=== PATIENT | male | born 1960 | race Caucasian/White ===

== ENCOUNTER 2019-12-06 05:22 | Observation (INO) ==
--- NOTE | 2019-11-16 14:57 | PAT Medication Instructions ---
Medication Instructions Date of Service November 16, 2019 Home Medications Medication Instructions Recorded Wheeled Walker #1 ea 11/01/19 ascorbic acid (vitamin C) [Vitamin C] 500 mg PO QAM cyanocobalamin (vitamin B-12) 500 mcg PO QAM naproxen sodium [Aleve] 440 mg PO QAM ASK your surgeon for instructions naproxen sodium [Aleve] 440 mg PO QAM DO NOT take the morning of surgery ascorbic acid (vitamin C) [Vitamin C] 500 mg PO QAM cyanocobalamin (vitamin B-12) 500 mcg PO QAM Other Notes If you have any questions please call us at [phone] or [phone] or [phone] or [phone]
--- NOTE | 2019-11-20 10:33 | Anesthesiology Consultation ---
Date of Service November 20, 2019 Assessment & Plan (1) Encounter for pre-operative examination: Per assessment on 11/19: Travel screen- Lives in [place]. Uses PPE. No known COVID-19 positive contacts or current COVID-19 related symptoms. Surgeon arranging preop COVID testing. Awaiting results. Chart Review Chart Review: Acceptable Risk for Surgery and Patient seen in Pre Admission Testing Teaching & Discussion Pre-Anesthesia Teaching/Discussion Notes: Instructed NPO after midnight before surgery,except medications with 15 cc of water. Medication instructions provided according to the PAT guidelines. History Surgery Operation Date: 12/06/19 11:20 Proposed Procedures p Total Hip Arthroplasty Uncemented - Terry Ramon MD Height/Weight Height: 5 ft 9 in Weight: 77.3 kg Allergies Allergy/AdvReac Type Severity Reaction Status Date / Time No Known Allergies Allergy Verified 11/15/19 14:02 Medications Home Medications Medication Instructions Recorded Confirmed Last Taken Wheeled Walker #1 ea 11/01/19 11/01/19 Unknown ascorbic acid (vitamin C) [Vitamin 500 mg PO QAM 11/15/19 11/15/19 Unknown C] cyanocobalamin (vitamin B-12) 500 mcg PO QAM 11/15/19 11/15/19 Unknown naproxen sodium [Aleve] 440 mg PO QAM 11/15/19 11/15/19 Unknown Past Medical History Medical History (Updated 11/20/19 @ 14:45 by Estela Brito) Arthritis of right hip Chronic back pain lower back Lumbar spondylosis Exercise / Class Metabolic Activity II 4-5 Yardwork/Stairs/Walk up hill Past Surgical History Surgical History History of cholecystectomy History of colonoscopy Past Anesthesia History No Hx of Anesthesia Complications and No Family Hx of Anesthesia Complications History of PONV No Hx of PONV and No Hx of Motion Sickness Social History Smoking Status: Former smoker Do You Dip or Chew Tobacco: No Smoking End Date: QUIT 1985 Hx Alcohol Use: Yes Alcohol type: beer alcohol intake frequency: a few times a week Hx Substance Use: No Review of Systems Patient denies chest pain, shortness of breath, dyspnea on exertion, cough, wheezing, palpitations. Physical Exam Vital Signs VITALS BP 113/73 P 75 TEMP 98.1 SP02 98%RA RESP 16 PHYSICAL Full neck and c-spine range of motion. Full TMJ range of motion. TMD 3 finger breaths Mallampati Score 3 Dentition: intact, caps/crowns on sides/molars Lungs: clear throughout to auscultation Cardiac: regular rate and rhythm, no murmurs noted Spine: normal Carotid arteries: negative bruit Extremities: no edema Testing Laboratory Results 11/20/19 11:02 11/20/19 11:02 PT 10.6 Seconds (9.0-12.0) 11/20/19 11:02 INR 1.0 (0.9-1.1) 11/20/19 11:02 APTT 28.1 Seconds (21.0-31.0) 11/20/19 11:02 Blood Type O Positive 11/20/19 11:02 Antibody Screen NEGATIVE 11/20/19 11:02 Electrocardiogram Date: 11/20/19 Findings: + NSR @ (65) Chest X-Ray Date: 11/20/19 Findings: + NAD
[2019-11-20 12:10] LABS: Basophils # (auto) 0.02 K/uL (0-0.2); Basophils % (auto) 0.4 %; Eosinophils # (auto) 0.34 K/uL (0-0.5); Eosinophils % (auto) 6.6 %; Hematocrit (blood only) 44.7 % (42-52); Hemoglobin 15.2 g/dL (14.0-18.0); Immature Granulocytes # (auto) 0.02 K/uL (0.00-0.02); Immature Granulocytes % (auto) 0.4 %; Lymphocytes # (auto) 1.31 K/uL (1.2-3.4); Lymphocytes % (auto) 25.3 %; Mean Corpuscular Hemoglobin 30.6 pg (25-34); Mean Corpuscular Volume 90.1 fL (80-100); Mean Platelet Volume 9.7 fL (7.4-10.4); Monocytes # (auto) 0.46 K/uL (0.11-0.59); Monocytes % (auto) 8.9 %; Neutrophils # (auto) 3.02 K/uL (1.4-6.5); Neutrophils % (auto) 58.4 %; Platelet Count 234 K/uL (130-400); RDW Coefficient of Variation 12.9 % (11.5-14.5); RDW Standard Deviation 42.2 fL (36.4-46.3); Red Blood Count 4.96 M/uL (4.7-6.1); White Blood Count 5.17 K/uL (4.8-10.8)
--- NOTE | 2019-11-20 12:15 | XRay Report ---
XR chest Pre-admission PA/Lat HISTORY: 59 years-old Male pat preoperative exam. No acute chest complaints COMPARISON: None TECHNIQUE: PA and lateral views of the chest FINDINGS: Cardiomediastinal and hilar silhouettes are within normal limits. There is no pneumothorax, pleural e ffusion, airspace consolidation or overt pulmonary edema. Bones of the chest appear grossly intact. C holecystectomy. IMPRESSION: No acute process. ACT 112: Negative or not required by law. The above report was generated using voice recognition software. It may contain grammatical, syntax o r spelling errors. Electronically signed by: Asael Garcia M.D. 11/20/2019 11:24 AM
[2019-11-20 12:20] LABS: Partial Thromboplastin Time 28.1 Seconds (21.0-31.0); Prothrombin Time 10.6 Seconds (9.0-12.0)
[2019-11-20 12:24] LABS: BUN Creatinine Ratio 15.8 (10-20); Creatinine Clr Calc Pharmacy 75.5 ml/min; Est GFR (African American) 87.8; Est GFR (Non-African American) 75.8; Potassium 4.4 mmol/L (3.5-5.1)
--- NOTE | 2019-11-20 12:27 | Electrocardiogram Report ---
Test Reason : Blood Pressure : / mmHG Vent. Rate : 065 BPM Atrial Rate : 065 BPM P-R Int : 158 ms QRS Dur : 086 ms QT Int : 356 ms P-R-T Axes : 062 087 044 degrees QTc Int : 370 ms Normal sinus rhythm Normal ECG No previous ECGs available Confirmed by Elroy Tate ([id number]) on 11/20/2019 12:27:05 PM Referred By: Terry Ramon Confirmed By:Elroy Tate
--- NOTE | 2019-12-02 15:10 | History and Physical Report ---
DATE OF ADMISSION: 12/06/2019 CHIEF COMPLAINT: Right hip pain. 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 He has a 2-year history of increasing right hip pain and discomfort, describes it has gotten worse over time. It has gotten significantly worse over the past 6 months. He has difficulty walking any distance and having trouble doing his job. He was initially seen by Dr. Gale at [facility]. He has been through extensive conservative care including multiple anti-inflammatories, which have not really helped much in the past 6 months. He describes groin pain, thigh pain, buttock pain, and lateral hip pain radiating down his leg to his knee. He denies any numbness. He did have an injection into his hip, which helped him very briefly. He does not remember what or where this was done. PAST MEDICAL HISTORY: Noncontributory. PREVIOUS SURGERIES: None. ALLERGIES: None. CURRENT MEDICATIONS: Include various anti-inflammatory medicines. SOCIAL HISTORY: Significant for a 59-year-old male. 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 He is . 1-2 drinks per week. Does not smoke. FAMILY HISTORY: Noncontributory. REVIEW OF HISTORY: Negative for diabetes, neurologic problem, vascular problems or bleeding disorders. No history of DVT or PE. No known bleeding problems. PHYSICAL EXAMINATION GENERAL: Shows a pleasant, healthy appearing, middle-aged male. Looks to be in good health. HEENT: Benign. NECK: Supple with no lymphadenopathy. LUNGS: Clear to auscultation. HEART: Has a regular rate and rhythm. ABDOMEN: Soft, nontender, nondistended. EXTREMITIES: Grossly neurovascularly intact except as follows: Examination of the right hip reveals the patient ambulates independently. Fairly minimal limp. Leg lengths appear pretty clinically equal. He does have a significantly limited hip motion with internal rotation to neutral at best. It does recreate pain. He can externally rotate to 35 degrees. Negative straight leg raise. There is no visible atrophy. No knee effusion. X-RAYS: X-rays of the right hip were reviewed. It shows advanced right hip DJD. He has got complete loss of his joint space. Not a lot of osteophyte formation. Fairly concentric disease. X-rays of the lumbar spine were also reviewed. It shows significant lumbar spondylosis at L4-L5 and L5-S1. Fairly flat back. ASSESSMENT: A 59-year-old gentleman with a 2-year history of increasing right hip pain and discomfort consistent with advanced right hip arthritis as well as lumbar spondylosis. PLAN: We talked about treatment options. He has clearly got a very arthritic hip and I think this is a major play in his pain and he would like to have this fixed. 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 We are going to take him to the operating room and do right total hip replacement. The risks and benefits of this procedure were explained to the patient including but not limited to DVT, PE, , infection, neurological injury, vascular injury, bleeding problems, persistent pain, dislocation, leg length inequality, nerve palsy, need for blood transfusion, etc. The patient understands and desires to proceed. Informed consent was obtained. We did talk about his back issues and I did tell him that this may help his back pain a little bit, but it is not going to relieve it or take it all away. As far as return to work, we will see how things come along. He is going to probably need off at least 6 weeks. He will plan to be discharged home using [facility] home health program. I will see him back at 2 weeks postop. PAL
[2019-12-06] MEDS ORDERED: ACETAMINOPHEN 500 MG TAB PO SCH (06:00)
[2019-12-06] MEDS ORDERED: LR 500ML BOLUS, THEN 15ML/HR IV SCH (06:00)
[2019-12-06] MEDS ORDERED: LR 15ML/HR IV SCH (06:00)
[2019-12-06] MEDS ORDERED: FAMOTIDINE 20 MG TAB PO SCH (06:00)
[2019-12-06] MEDS ORDERED: BUPIVACAINE LIPOSOME/PF 266 MG, BUPIVACAINE/EPINEPHRINE 50 ML, SODIUM CHLORIDE 0.9% 30 ... INFIL SCH (06:00)
[2019-12-06] MEDS ORDERED: GABAPENTIN 900 MG DOSE PO SCH (06:00)
[2019-12-06] MEDS ORDERED: BUPIVACAINE 0.5 % 5 MG/1 ML PF 10ML VIAL ONE (06:24)
[2019-12-06] MEDS ORDERED: ePHEDrine sulfate 50 MG/ML AMP IV PRN ×2 (06:37→07:25)
[2019-12-06] MEDS ORDERED: ATROPINE SULFATE 0.1 MG/ML 10ML SYR IV PRN (06:37)
[2019-12-06] MEDS ORDERED: fentaNYL citrate 100 MCG/2 ML VIAL IV PRN (06:37)
[2019-12-06] MEDS ORDERED: ONDANSETRON INJ 2 MG/ML 2 ML VIAL IV PRN ×2 (06:37→07:25)
[2019-12-06] MEDS ORDERED: MIDAZOLAM HCL 1 MG/ML 2ML VIAL ONE ×2 (06:45→06:53)
[2019-12-06] MEDS ORDERED: MoRPHine SULFATE PF 1 MG/ML 10 ML AMP/VIAL ONE (06:45)
[2019-12-06] MEDS: TRANEXAMIC ACID / 0.7% NACL 1000MG/100ML BAG IV ONE ×2 (06:48→11:49)
[2019-12-06] MEDS ORDERED: TRANEXAMIC ACID / 0.7% NACL 1,000 MG/100 ML BAG IV STA (06:52)
[2019-12-06] MEDS ORDERED: fentaNYL citrate 100 MCG/2 ML VIAL ONE (06:53)
--- NOTE | 2019-12-06 06:53 | History & Physical Bridge Note ---
Date of Service December 06, 2019 History & Physical Bridge Note I have examined the patient, reviewed the History & Physical and in the interval since the performance of the History & Physical I have noted the following changes of clinical significance: no changes noted
[2019-12-06] MEDS ORDERED: BUPIVACAINE 0.5 % 5 MG/1 ML MPF 30ML VIAL ONE (06:58)
[2019-12-06] MEDS ORDERED: EPINEPHrine INJ 1 MG/ML AMP ONE (06:58)
[2019-12-06] MEDS ORDERED: BACITRACIN INJ 50,000 UNIT VIAL ONE (06:58)
[2019-12-06] MEDS: CEFAZOLIN 2000MG 2,000 MG/15 ML SYR IV SCH (07:12)
[2019-12-06] MEDS ORDERED: LACTATED RINGER'S 500 ML IV PRN (07:25)
[2019-12-06] MEDS ORDERED: NALOXONE HCL 0.08 MG in SYRINGE 1.8 ML IV PRN (07:25)
[2019-12-06] MEDS ORDERED: NALOXONE HCL 1 MG in SODIUM CHLORIDE 0.9% 1000ML 1,000 ML IV PRN (07:25)
[2019-12-06] MEDS ORDERED: MoRPHine SULFATE PF 1 MG/ML 10 ML AMP/VIAL INT SPINAL ONE (07:25)
[2019-12-06] MEDS ORDERED: MEPERIDINE HCL 25 MG/ML CARP/VIAL IV PRN (07:25)
[2019-12-06] MEDS ORDERED: DiphenhydrAMINE HCL 50 MG/ML VIAL IV PRN (07:25)
[2019-12-06] MEDS ORDERED: NALOXONE HCL 0.4 MG/1 ML VIAL/CARP IV PRN ×2 (07:25→10:12)
[2019-12-06] MEDS ORDERED: NO NARCOTICS OR SEDATIVES SCH (07:30)
[2019-12-06] MEDS ORDERED: SODIUM CHLORIDE 0.9% 1000ML 1,000 ML IV SCH (07:30)
[2019-12-06] MEDS ORDERED: PROPOFOL IV EMULSION 10 MG/ML 20 ML VIAL IV ONE (07:44)
[2019-12-06] MEDS ORDERED: PHENYLEPHRINE 100MCG/ML 5ML SYR ONE (07:44)
[2019-12-06] MEDS ORDERED: LIDOCAINE HCL 2% 2 ML VIAL/AMP(20MG/ML) INFIL ONE (07:44)
[2019-12-06] MEDS ORDERED: ePHEDrine sulfate 50 MG/ML SYR ONE (07:44)
[2019-12-06] MEDS ORDERED: GLYCOPYRROLATE 0.2 MG/ML VIAL ONE (07:50)
--- NOTE | 2019-12-06 08:37 | Post Operative Brief Note ---
PG Immediate Post Op with CF Date of Surgery December 06, 2019 Pre & Post Diagnosis Operation Date: 12/06/19 07:15 Pre-Op Diagnosis: Right Hip Degenerative Joint Disease Post-Op Diagnosis: Right Hip Degenerative Joint Disease I identified the patient and participated in the time-out.: Yes Procedure Operation Date: 12/06/19 07:15 Actual Procedures p Right Total Hip Arthroplasty(Right) - Terry Ramon MD Surgeon Terry Ramon MD Client Care Consultant Jaden, PAC Estimated Blood Loss 200 Findings Consistent with Post-Op Diagnosis Fluids 2000 cc Specimens Specimen Description: Permanent Solution: A.) Right Femoral Head Drains Mazariegos Catheter (16French mazariegos. 10ml balloon. urine output monitored throughout case by anesthesia staff.) Anesthesia Type Spinal MAC Complications none Disposition Accompanied Patient To Recovery: Yes Disposition: Recovery Room
--- NOTE | 2019-12-06 08:48 | Operative Report ---
Post Operative Report Pre & Post Diagnosis Operation Date: 12/06/19 07:15 Pre-Op Diagnosis: Right Hip Degenerative Joint Disease Post-Op Diagnosis: Right Hip Degenerative Joint Disease I identified the patient and participated in the time-out.: Yes Procedure Operation Date: 12/06/19 07:15 Actual Procedures p Right Total Hip Arthroplasty(Right) - Terry Ramon MD Surgeon Terry Ramon MD Apron Worker Jaden, PAC Estimated Blood Loss 200 Findings Consistent with Post-Op Diagnosis Operative findings revealed advanced right hip DJD with grade 4 [id number] disease of the femoral head and acetabulum. He had a moderate-sized joint effusion. Fairly large medial acetabular osteophyte. Fluids 2000 cc. Specimens Right femoral head sent for pathology. Drains None. 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 He is failed all conservative care. X-rays reveal advanced right hip DJD. He elected proceed with surgical treatment. Description of Procedure Operative implants consist of: 1. Biomet G7 size 54 mm acetabular shell. 2. Biomet 6.5 cancellus acetabular screws 1 of 35 mm length and 125 mm length. 3. [place] hole eliminator. 4. Highly cross-linked polyethylene liner with a 54 mm outer diameter and 36 mm inner diameter. 5. Depuy Corail size 10 KLA short neck femoral stem with 125 degree angle. 6. +5/36 mm ceramic articular ball. Patient was taken to the operating identified and placed on the operating table supine position protectors were properly padded. IV antibiotics arrived by anesthesia team. A spinal anesthetic and been implemented holding area. Delacruz catheter was placed in sterile fashion and the patient then placed in the left lateral decubitus position. An axillary roll was placed. Stulberg hip positioner was used for positioning. The right hip and leg were then prepped and draped in usual sterile fashion. A posterior lateral approach to the right hip was then performed to a curvilin ear incision centered over the greater trochanter. Sharp dissection was got through subcutaneous tissue down to level the IT band gluteal fascia the IT band gluteal fascia then incised longitudinally in line with the skin incision. The underlying greater truck bursa was excised. The piriformis and external rotators were tagged and taken off the posterior aspect hip joint capsule. Great care was taken throughout the procedure protect the sciatic nerve at all times. The posterior capsule was then released from the posterior aspect of the hip joint and hip was internally rotated and dislocated. Femoral neck osteotomy cut was made with Final Cut 10 mm above the lesser trochanter. Femoral head was removed and sent for pathology. The femur was retracted anteriorly. Attention drawn the acetabulum. The acetabular labrum was excised. The pulmonary fat was excised. Sequential reaming the acetabular was then performed begin with size 45 and progressing up to 53. A 54 mm Biomet G7 acetabular shell was then placed in about 40 degrees lateral opening and 20 degrees of anteversion. It was fixed with two 6.5 cancellus acetabular screws. Some small anterior osteophytes removed. A trial liner was placed. Attention drawn the femur. The proximal femur was entered with a cookie-cutter followed by canal finder. I then broached begin the size 8 and progressing up to 10. Got excellent fit of the 10. I then trialed the hip. With a standard KLA implant the soft tissue tension just seem tight and his offset seemed to high. Therefore, we elected to try the short neck. We placed the short neck with a +5 articular ball and the hip was fully stable in full extension and external rotation and flexion to 9 degrees into rotation over [address]. I elect to place these implants. Leg lengths seemed appropriate. All trial implants were removed. An apex hole senior writer was placed. Highly cross-linked polyethylene liner was placed. A size 10 KLA femoral stem was impacted in position. This was a short neck stem. A +5/36 mm ceramic articular ball was placed. Hip was located once again found to be stable. Attention drawn toward closing. The wound was irrigated with copious also pulsatile lavage solution. I did inject locally with 50 cc of half percent Marcaine with epinephrine. The posterior capsule and external rotators were then repaired through drill holes in the posterior trochanter with #2 Tycron suture. The IT band gluteal fascia then closed with #1 PDS suture in running fashion. Subcutaneous tissue was then closed 2 layers of the deep layer #1 Vicryl suture and subcutaneous tissues with 2-0 Dexon suture in a buried interrupted fashion. Skin was closed skin nisha. A sterile dressing composed Xeroform, 4 x 4's, sterile ABD pad and foam tape was applied. Patient then transferred to the recovery room in stable condition. The patient tolerated procedure well and there were no complications. Juan Stanley, my physician assistant art director, was present for the entire procedure. His assistance was essential and required for appropriate patient positioning, prepping and draping, surgical exposure, performing the technical details of the operation, placement the implants, closure of the wound, and placement of the sterile bandage. I attest to the content of the Intraoperative Record and any orders documented therein. Any exceptions are noted below.
--- NOTE | 2019-12-06 09:05 | XRay Report ---
AP PELVIS, CROSSTABLE LATERAL RIGHT HIP History: Right total hip arthroplasty. Degenerative arthritis. Postop. FINDINGS: The patient is status post a right total hip arthroplasty. The hardware is intact. No fract ure or dislocation. Skin nisha are in place. IMPRESSION: Right total hip arthroplasty. No evidence for hardware complication ACT 112: Negative or not required by law. Electronically signed by: Elijah Garcia M.D. 12/06/2019 9:04 AM
[2019-12-06] MEDS ORDERED: TAMSULOSIN HCL 0.4 MG CAP PO PRN (10:12)
[2019-12-06] MEDS ORDERED: bisacodyL 10 MG SUPP PR PRN (10:12)
[2019-12-06] MEDS ORDERED: ALUMINUM/MAGNESIUM SUSP 30 ML UDC PO PRN (10:12)
[2019-12-06] MEDS ORDERED: METOCLOPRAMIDE HCL INJ 5 MG/ML 2 ML VIAL IV PRN (10:12)
[2019-12-06] MEDS ORDERED: MAGNESIUM HYDROXIDE SUSP 30 ML UDC PO PRN (10:12)
--- NOTE | 2019-12-06 10:19 | Anesthesiology Progress Note ---
Date of Service December 06, 2019 Anesthesia Post Procedure Vital Signs Vital Signs: Temp Pulse Pulse Resp BP Pulse Ox 12/06/19 10:05 97.3 F L 58 L 16 128/81 95 12/06/19 09:55 53 L 14 114/74 93 12/06/19 09:45 55 L 14 121/80 93 12/06/19 09:35 55 L 14 115/75 95 12/06/19 09:25 57 L 18 120/76 99 12/06/19 09:15 52 L 14 116/73 96 12/06/19 09:05 65 14 118/68 95 12/06/19 08:55 74 14 129/80 97 12/06/19 08:45 79 16 130/55 L 100 12/06/19 08:39 97.0 F L 79 20 123/73 100 12/06/19 06:24 98.1 F 60 20 129/88 98 12/06/19 06:00 97.9 F 70 20 127/95 98 Transfer of Care Handoff Completed per policy Notes Mental Status: alert / awake / arousable and participated in evaluation Patient Amnestic to Procedure: Yes Nausea / Vomiting: adequately controlled Pain: adequately controlled Airway Patency, RR, SpO2: stable & adequate BP & HR: stable & adequate Hydration State: stable & adequate Neuraxial Anesthesia: was administered and sensory block is resolving Anesthetic Complications: no major complications apparent and Pt Satisfied with anesthetic care
[2019-12-06] MEDS: ASPIRIN 81 MG ECTAB PO SCH ×2 (13:17→19:47)
[2019-12-06] MEDS: DOCUSATE SODIUM 100 MG CAP PO SCH ×2 (13:18→19:47)
[2019-12-06] MEDS: ACETAMINOPHEN 500 MG TAB PO SCH ×2 (13:18→22:00)
[2019-12-06] MEDS: MULTIVITAMIN TAB PO SCH (13:18)
[2019-12-06] MEDS: ASCORBIC ACID 500 MG TAB PO SCH (13:19)
[2019-12-06] MEDS: CYANOCOBALAMIN 500 MCG TABLET (VITAMIN B-12) PO SCH (13:19)
[2019-12-06] MEDS: KETOROLAC 30 MG/ML VIAL IV SCH ×3 (13:22→23:22)
[2019-12-06] MEDS: SODIUM CHLORIDE 0.9% 1000ML 1,000 ML IV SCH ×3 (14:35→19:47)
[2019-12-06] MEDS: CEFAZOLIN 1000MG 1,000 MG/7.5 ML SYR IV SCH ×2 (14:38→23:22)
[2019-12-06] MEDS ORDERED: TRANEXAMIC ACID / 0.7% NACL 1,000 MG/100 ML BAG IV SCH (14:40)
--- NOTE | 2019-12-06 16:29 | Progress Notes ---
DATE: 12/06/2019 SUBJECTIVE: 59-year-old gentleman postop from a right hip replacement. He is doing well. Pretty minimal pain. No chest pain or shortness of breath. Not feeling dizzy or lightheaded. OBJECTIVE: VITAL SIGNS: Temperature 36.2. Vital signs stable. GENERAL: Shows a pleasant, middle-aged male. He is sitting up in bed and talking to his daughter. Looks pretty comfortable. LUNGS: Clear to auscultation. HEART: Has a regular rate and rhythm. ABDOMEN: Soft, nontender, nondistended. EXTREMITIES: Grossly neurovascularly intact except as follows: Examination of the right leg reveals the leg lengths to be equal. Dressing is clean, dry and intact. Thigh is soft and supple. He can dorsiflex and plantarflex his foot appropriately. He is neurologically intact. X-RAYS: X-rays of the right hip from recovery room reviewed. It shows right uncemented total hip arthroplasty. Components looked to be in good position. No signs of problems. ASSESSMENT: 59-year-old gentleman postop from right hip replacement, doing well. Pain is controlled. Hip is located. He is neurologically intact. PLAN: 1. DVT prophylaxis including thigh-high TEDs, SCDs, and aspirin twice a day. 2. PT/OT. Weight bear as tolerated. Right total hip protocol. 3. Pain control, doing well with current pain regimen. 4. IV antibiotics x24 hours. 5. Disposition: Plan to discharge to home with some home health once adequately recovered and medically stable.
[2019-12-06] MEDS ORDERED: SENNA 8.6 MG TAB PO SCH (21:00)
[2019-12-07] MEDS ORDERED: HYDROmorphone INJ 0.5 MG/0.5 ML SYR IV PRN (01:25)
[2019-12-07] MEDS ORDERED: DC INTRASPINAL MORPHINE ONE (01:25)
[2019-12-07] MEDS ORDERED: ONDANSETRON INJ 2 MG/ML 2 ML VIAL IV PRN (01:25)
[2019-12-07] MEDS ORDERED: TRAMADOL HCL 50 MG TABLET PO PRN (01:25)
[2019-12-07] MEDS: SODIUM CHLORIDE 0.9% 1000ML 1,000 ML IV SCH (01:43)
[2019-12-07] MEDS: KETOROLAC 30 MG/ML VIAL IV SCH ×2 (05:50→12:17)
[2019-12-07] MEDS: ACETAMINOPHEN 500 MG TAB PO SCH ×2 (05:50→13:59)
[2019-12-07 05:57] LABS: Basophils # (auto) 0.01 K/uL (0-0.2); Basophils % (auto) 0.2 %; Eosinophils # (auto) 0.25 K/uL (0-0.5); Eosinophils % (auto) 4.3 %; Hematocrit (blood only) 36.3 % (42-52); Hemoglobin 12.3 g/dL (14.0-18.0); Lymphocytes # (auto) 0.87 K/uL (1.2-3.4); Lymphocytes % (auto) 15.1 %; Mean Corpuscular Hemoglobin 30.4 pg (25-34); Mean Corpuscular Hgb Conc 33.9 g/dL (32-36); Mean Corpuscular Volume 89.9 fL (80-100); Mean Platelet Volume 9.2 fL (7.4-10.4); Monocytes # (auto) 0.55 K/uL (0.11-0.59); Monocytes % (auto) 9.5 %; Neutrophils % (auto) 70.9 %; Platelet Count 167 K/uL (130-400); RDW Coefficient of Variation 12.7 % (11.5-14.5); RDW Standard Deviation 41.2 fL (36.4-46.3); Red Blood Count 4.04 M/uL (4.7-6.1); White Blood Count 5.78 K/uL (4.8-10.8)
[2019-12-07 06:33] LABS: BUN Creatinine Ratio 12.8 (10-20); Calcium 8.5 mg/dl (8.5-10.1); Creatinine Clr Calc Pharmacy 83.2 ml/min; Est GFR (African American) 98.8; Est GFR (Non-African American) 85.2; Potassium 4.2 mmol/L (3.5-5.1)
--- NOTE | 2019-12-07 08:34 | Progress Notes ---
DATE: 12/07/2019 SUBJECTIVE: A 59-year-old gentleman postop day 1 from a left hip replacement. He is doing pretty well. Some pain, but very manageable. No chest pain or shortness of breath. Not feeling dizzy or lightheaded. OBJECTIVE: VITAL SIGNS: Temperature 36.6. Vital signs stable. GENERAL: Physical examination shows a pleasant, middle-aged male. He is sitting up in his bedside chair and looks pretty comfortable. EXTREMITIES: Examination of the left hip and leg reveals the dressing to be clean, dry and intact. Leg lengths are equal. Thigh is soft and supple. He is neurologically intact. LABORATORY DATA: Hemoglobin 12.3. Hematocrit 36.3. Electrolytes are stable. ASSESSMENT: A 59-year-old gentleman postop day 1 from a left hip replacement, doing pretty well. His pain is controlled. Hip is located. He is neurologically intact. PLAN: 1. DVT prophylaxis including thigh-high TEDs, SCDs, and aspirin twice a day. 2. PT/OT. Weight bear as tolerated. Left total hip protocol. 3. Pain control, doing okay with current pain regimen. 4. Disposition: We will plan to discharge to home with some home health likely later today if he does okay in therapy and his pain is controlled.
[2019-12-07] MEDS: DOCUSATE SODIUM 100 MG CAP PO SCH (09:33)
[2019-12-07] MEDS: ASCORBIC ACID 500 MG TAB PO SCH (09:33)
[2019-12-07] MEDS: MULTIVITAMIN TAB PO SCH (09:34)
[2019-12-07] MEDS: CYANOCOBALAMIN 500 MCG TABLET (VITAMIN B-12) PO SCH (09:35)
[2019-12-07] MEDS: ASPIRIN 81 MG ECTAB PO SCH (09:35)
--- NOTE | 2019-12-11 16:12 | Discharge Summary ---
Date of Service December 11, 2019 Admission HPI Per Admitting Provider Documented in the H & P Admission Exam (Per Admitting) Constitutional Documented in the H & P Discharge Data Consultations 12/07/19 08:00 Consult Case Management - Discharge Planning Routine Procedures Performed Operation Date: 12/06/19 07:15 Actual Procedures p Right Total Hip Arthroplasty(Right) - Terry Ramon MD Hospital Course (1) Status post total hip replacement, right: This patient is a 59 year old male admitted on 12/06/19 and underwent total hip arthroplasty. He tolerated the procedure well and there were no complications. Transferred to the PACU post op and later to the orthopedic floor for further care. He was given ancef for antibiotic prophylaxis. He was also g iven ANA stockings, SCDs, and aspirin for DVT prophylaxis. Hemoglobin, hematocrit, and vital signs were monitored during his hospital stay and remained stable. Did not require any blood transfusions. There were no complications during his hospital stay. By post op day #1 the patient was tolerating a regular diet, pain was reasonably controlled with oral pain medicine, and he was participating in physical therapy. On post op day #1 the patient was discharged home and set up with home health care. He was given printed discharge instructions including prescriptions for extra strength tylenol, aspirin, and tramadol. Continue physical therapy, weight bearing as tolerated. Continue hip precautions. Continue ANA stockings. Follow up approximately 2 weeks post op or sooner if there are problems or concerns. Coding Level of Care Code None Diagnoses Status post total hip replacement, right Z96.641
[2019-12-13] MEDS ORDERED: INFLUENZA VIRUS QUAD VACCINE 0.5 ML SYR IM ONE (09:00)
[2019-12-13] MEDS ORDERED: INFLUENZA ADMINISTRATION CHARGE ONE (09:00)
== END 2019-12-07 15:34 | disposition home health service (06) ==
LOC: ASU 05:22 → 3E 05:22

== ENCOUNTER 2024-06-08 16:28 | Inpatient (IN) ==
--- NOTE | 2024-06-08 16:50 | Emergency Department Note ---
ED Provider Note History of Present Illness Chief Complaint: Abdominal Pain Stated Complaint: abd pain Time Seen by Provider: 06/08/24 16:34 Source: patient Mode of arrival: EMS Limitations: no limitations This patient is a 64-year-old male who presents to the emergency department via EMS for evaluation of abdominal pain. Patient states that 1 week ago, he noticed some pain in the left low back with radiation into the buttock. He assumed this was muscular related to his job and states that it resolved with some anti-inflammatories, massage and time. That pain has been completely gone for a few days. Last night he noticed some pain intermittently in the lower abdomen, radiating into the left groin. He did take some ibuprofen this morning due to the intermittent pain. He states that about 2 hours prior to arrival, he the pain became constant and located under the umbilicus. He received Toradol en route with mild improvement, however pain has returned and is severe. He does note some dysuria and states that the initial pain started after urinating. Denies any history of kidney stones/infections. Home Medications Medication Instructions Recorded Confirmed Type ascorbic acid (vitamin C) 500 mg 500 mg PO QAM 11/15/19 06/08/24 History tablet (Vitamin C) cyanocobalamin (vitamin B-12) 500 500 mcg PO QAM 11/15/19 06/08/24 History mcg tablet atorvastatin 40 mg tablet 40 mg PO DAILY 06/08/24 06/08/24 History Allergies Allergy/AdvReac Type Severity Reaction Status Date / Time No Known Allergies Allergy Verified 12/06/19 05:40 Past Med/Surg History Problem List (Updated 06/09/24 @ 01:21 by Elizabeth Alejandre PA-C) Sigmoid diverticulitis (Acute) Status post total hip replacement, right Lumbar spondylosis Arthritis of right hip Medical History (Updated 06/09/24 @ 01:21 by Elizabeth Alejandre PA-C) Encounter for pre-operative examination Chronic back pain lower back Surgical History History of cholecystectomy History of colonoscopy Social History Smoking Status: Former smoker Tobacco Type: Cigarettes Second Hand Exposure: No; Do You Dip or Chew Tobacco: No; Tobacco Cessation Education Requested by Patient: No Hx Alcohol Use: Yes Alcohol type: beer Hx Substance Use: No Preferred Language: Albanian Communication Ability: Effective Pairer Odds Required: No Beliefs That Will Affect Care: None marital status: Current Living Situation: Spouse Other Information That Helps Us Care for You: No Feels Safe at Home: Yes Safety Concerns: Feels Safe At This Time Assistive Devices: None Physical Exam Vital Signs Vital Signs - 24 hr 06/08/24 16:33 06/08/24 16:33 06/08/24 17:05 Temperature 37.3 C Temperature Source Oral Pulse Rate 98 H 89 Pulse Rate [Apical] Pulse Rhythm Regular Pulse Rhythm [Apical] Pulse Strength Normal Pulse Strength [Apical] Respiratory Rate 16 Respiratory Effort / Characteristics Non-Labored Spontaneous Non-Labored Spontaneous Respiratory Depth Normal Respiratory Pattern Regular Blood Pressure 126/66 Blood Pressure Mean 86 Blood Pressure Position Lying Pulse Oximetry 99 Oxygen Delivery Method Sepsis Recent Fever Within 48 Hours No Sepsis New/Unexplained Change in Mental Status No Sepsis Action Taken by Nursing No Action Required 06/08/24 19:02 Temperature Temperature Source Pulse Rate Pulse Rate [Apical] 99 H Pulse Rhythm Pulse Rhythm [Apical] Regular Pulse Strength Pulse Strength [Apical] Normal Respiratory Rate 16 Respiratory Effort / Characteristics Non-Labored Spontaneous Respiratory Depth Normal Respiratory Pattern Regular Blood Pressure Blood Pressure Mean Blood Pressure Position Pulse Oximetry 95 Oxygen Delivery Method Room Air Sepsis Recent Fever Within 48 Hours Sepsis New/Unexplained Change in Mental Status Sepsis Action Taken by Nursing VITALS: Vitals are noted on the nurse's note and reviewed by myself. GENERAL: This is a 64-year-old male, in no acute distress, well-developed well- nourished. SKIN: The skin was without rashes. EYES: Pupils equal round and reactive to light and accommodation. No scleral icterus. MOUTH: Mucous membranes moist. Tonsils are not enlarged. Pharynx without erythema or exudate. HEART: Regular rate and rhythm without murmurs gallops or rubs. LUNGS: Clear to auscultation bilaterally without wheezes, rales or rhonchi. ABDOMEN: Positive bowel sounds x 4. Tenderness to palpation in the left lower quadrant and suprapubic region. Guarding noted. No rebound tenderness. NEURO: Patient was alert and oriented to person place and time. Course Administered Medications Acetaminophen (Acetaminophen 325 Mg Tab) 650 mg PO QID PRN PRN Reason: pain/fever Stop: 07/08/24 20:10 Last Admin: 06/08/24 20:54 Dose: 650 mg Documented By: CASSIE Sodium Chloride (Nss) 1,000 mls @ 75 mls/hr IV .[id number] ONE Stop: 06/09/24 09:39 Last Admin: 06/08/24 20:56 Dose: 75 mls/hr Documented By: CASSIE Oxycodone HCl (Oxycodone Hcl Ir 5 Mg Tab (Immediate Release)) 5 mg PO Q4H PRN PRN Reason: Pain Stop: 06/22/24 20:10 Last Admin: 06/08/24 23:36 Dose: 5 mg Documented By: MACK Discontinued Medications Hydromorphone HCl (Hydromorphone Inj 0.5 Mg/0.5 Ml Syr) 0.5 mg IV NOW STA Stop: 06/08/24 19:32 Last Admin: 06/08/24 19:50 Dose: Not Given Documented By: CASSIE Sodium Chloride (Nss) 1,000 mls @ 999 mls/hr IV .[id number] ONE Stop: 06/08/24 17:48 Last Infusion: 06/08/24 18:03 Dose: Infused Documented By: Admin: 06/08/24 16:57 Dose: 999 mls/hr Documented By: CASSIE Piperacillin Sod/Tazobactam Sod (Zosyn) 4.5 gm in 100 mls @ 200 mls/hr IV NOW ONE; Protocol Stop: 06/08/24 18:47 Last Infusion: 06/08/24 20:51 Dose: Infused Documented By: Admin: 06/08/24 19:12 Dose: 200 mls/hr Documented By: CASSIE Ioversol (Optiray 320 100ml) 90 ml IV ONCE ONE Stop: 06/08/24 17:55 Last Admin: 06/08/24 17:54 Dose: 90 ml Documented By: DEMETRIUS Ketorolac Tromethamine (Ketorolac Tromethamine 15 Mg/Ml Vial) 15 mg IV NOW STA Stop: 06/08/24 21:19 Last Admin: 06/08/24 21:34 Dose: 15 mg Documented By: CASSIE Morphine Sulfate (Morphine Sulfate 10 Mg/Ml Carp/Vial) 6 mg IV NOW STA Stop: 06/08/24 16:49 Last Admin: 06/08/24 17:00 Dose: 6 mg Documented By: CASSIE Ondansetron HCl (Ondansetron Inj 2 Mg/Ml 2 Ml Vial) 4 mg IV NOW STA Stop: 06/08/24 16:49 Last Admin: 06/08/24 16:59 Dose: 4 mg Documented By: CASSIE Medical Decision Making Differential Diagnosis Appendicitis, testicular torsion, infections, diverticulitis, UTI, obstruction, mesenteric ischemia, aortic pathology, inflammatory bowel disease, renal colic, PUD, pancreatitis, biliary pathology, hernia, volvulus, constipation, as well as other pathologies. Laboratory Data Attestation: I reviewed the patient's lab results. 06/08/24 16:37 06/08/24 16:37 Lab Results 06/08/24 06/08/24 06/08/24 Range/Units 16:37 17:49 19:06 WBC 11.06 H (4.8-10.8) K/ul RBC 4.61 L (4.70-6.10) M/uL Hgb 14.0 (14.0-18.0) g/dl Hct 40.4 L (42.0-52.0) % MCV 87.6 (80.0-100.0) fL MCH 30.4 (25.0-34.0) pg MCHC 34.7 (32.0-36.0) g/dL RDW Std Deviation 40.3 (36.4-46.3) fL RDW Coeff of Kimberli 12.6 (11.5-14.5) % Plt Count 179 (130-400) K/uL MPV 9.6 (9.4-12.4) fL Immature Gran % (Auto) 0.2 % Neut % (Auto) 91.0 % Lymph % (Auto) 4.3 % [place] % (Auto) 4.2 % Eos % (Auto) 0.1 % Baso % (Auto) 0.2 % Neut # (Auto) 10.06 H (1.40-6.50) K/uL Lymph # (Auto) 0.48 L (1.20-3.40) K/uL [place] # (Auto) 0.47 (0.11-0.59) K/uL Eos # (Auto) 0.01 (0.00-0.50) K/uL Baso # (Auto) 0.02 (0.00-0.20) K/uL Immature Gran # (Auto) 0.02 (0.01-0.20) K/uL Sodium 136 (136-145) mmol/L Potassium 4.1 (3.5-5.1) mmol/L Chloride 104 (98-107) mmol/L Carbon Dioxide 25 (21-32) mmol/L Anion Gap 7 (3-11) BUN 17 (6-23) mg/dl Creatinine 1.01 (0.6-1.4) mg/dl Est Cr Clr Drug Dosing 75.8 ml/min eGFR 84.09 BUN/Creatinine Ratio 16.8 (10-20) Glucose 97 (70-99(Fasting)) mg/dl Lactate 2.0 (0.4-2.0) mmol/L Calcium 9.2 (8.6-10.3) mg/dl Magnesium 1.7 (1.7-2.4) mg/dl Total Bilirubin 0.9 (0.2-1.0) mg/dl AST 21 (13-39) U/L ALT 30 (7-52) U/L Alkaline Phosphatase 58 (34-104) U/L Total Protein 6.4 (6.0-8.3) gm/dl Albumin 4.1 (3.4-5.0) gm/dl Globulin 2.3 L (2.5-4.0) gm/dl Albumin/Globulin Ratio 1.8 (0.9-2) Lipase 11 (11-82) U/L Urine Color Yellow Urine Appearance Clear (Clear) Urine pH 7.0 (4.5-7.5) Ur Specific [place] 1.017 (1.000-1.030) Urine Protein Negative (Negative) Urine Glucose (UA) Negative (Negative) Urine Ketones 1+ H (Negative) Urine Blood Negative (Negative) Urine Nitrite Negative (Negative) Urine Bilirubin Negative (Negative) Urine Urobilinogen Negative (Negative) Ur Leukocyte Esterase Negative (Negative) Imaging Data Attestation: I personally reviewed and interpreted this imaging study as follows: Radiologist's Impression: Abdomen/Pelvis CT 06/08/24 16:47 INDICATION: Lower abdominal pain. COMPARISON: No relevant priors available. TECHNIQUE: Axial CT images of the abdomen and pelvis were obtained following IV contrast administration. Coronal and sagittal reformations were reviewed. FINDINGS: Visualized lung bases appear unremarkable. In the gallbladder is surgically absent. Mild delay ductal prominence likely relates to patient's post cholecystectomy state. The spleen, pancreas and adrenal glands appear unremarkable. No hydronephrosis. Cysts noted No evidence of bowel obstruction/appendicitis. Sigmoid colonic wall thickening with adjacent inflammatory fat stranding and diverticula present. No free air. No drainable fluid collection. The urinary bladder appears unremarkable. Right hip hardware with streak artifact in the pelvis. No acute osseous abnormality evident. IMPRESSION: Sigmoid diverticulitis. No free air or abscess. Electronically signed by Davion Tena 06-08-2024 6:41 PM MDM Narrative This patient is a 64-year-old male who presents to the emergency department via EMS for evaluation of severe abdominal pain. Labs revealed a mild leukocytosis and her otherwise unremarkable. Lactate is upper limits of normal at 2.0. Urinalysis is not suggestive of infection, no hematuria. CT of the abdomen/pelvis shows diverticulitis without evidence of perforation or abscess. Patient has required several doses of IV pain medication including Toradol, morphine, Dilaudid. He is still quite tender on exam with some guarding. Given patient's exam and significant pain I did recommend admission to the hospital. He was given a dose of Zosyn. Case was discussed with the [facility] service who agreed to evaluate patient for further care. Impression Sigmoid diverticulitis Discharge Plan Visit Data Chief Complaint: Abdominal Pain Stated Complaint: abd pain ED Provider: Don Arriaga ED Midlevel Provider: Elizabeth Alejandre Discharge Problem: Sigmoid diverticulitis Patient Disposition: Admitted As Inpatient Discharge Instructions Interventions: ED Discharge Assessment Last Done: 06/08/24 21:52
[2024-06-08] MEDS: SODIUM CHLORIDE 0.9% 1,000 ML IV ONE ×2 (16:57→20:56)
[2024-06-08] MEDS: ONDANSETRON INJ 2 MG/ML 2 ML VIAL IV STA (16:59)
[2024-06-08] MEDS: MoRPHine SULFATE 10 MG/ML CARP/VIAL IV STA (17:00)
[2024-06-08 17:04] LABS: Hematocrit (blood only) 40.4 % (42.0-52.0); Mean Corpuscular Hemoglobin 30.4 pg (25.0-34.0); Mean Corpuscular Hgb Conc 34.7 g/dL (32.0-36.0); Mean Corpuscular Volume 87.6 fL (80.0-100.0); Mean Platelet Volume 9.6 fL (9.4-12.4); Platelet Count 179 K/uL (130-400); RDW Coefficient of Variation 12.6 % (11.5-14.5); RDW Standard Deviation 40.3 fL (36.4-46.3); Red Blood Count 4.61 M/uL (4.70-6.10); White Blood Count 11.06 K/ul (4.8-10.8)
[2024-06-08 17:26] LABS: Albumin Globulin Ratio 1.8 (0.9-2); Albumin Level 4.1 gm/dl (3.4-5.0); BUN Creatinine Ratio 16.8 (10-20); Bilirubin,Total 0.9 mg/dl (0.2-1.0); Calcium 9.2 mg/dl (8.6-10.3); Creatinine Clr Calc Pharmacy 75.8 ml/min; Globulin 2.3 gm/dl (2.5-4.0); Potassium 4.1 mmol/L (3.5-5.1); Total Protein 6.4 gm/dl (6.0-8.3)
[2024-06-08 17:27] LABS: Basophils # (auto) 0.02 K/uL (0.00-0.20); Basophils % (auto) 0.2 %; Eosinophils # (auto) 0.01 K/uL (0.00-0.50); Eosinophils % (auto) 0.1 %; Immature Granulocytes # (auto) 0.02 K/uL (0.01-0.20); Immature Granulocytes % (auto) 0.2 %; Lymphocytes # (auto) 0.48 K/uL (1.20-3.40); Lymphocytes % (auto) 4.3 %; Monocytes # (auto) 0.47 K/uL (0.11-0.59); Monocytes % (auto) 4.2 %; Neutrophils # (auto) 10.06 K/uL (1.40-6.50)
[2024-06-08] MEDS: OPTIRAY 320 100ml IV ONE (17:54)
[2024-06-08 18:07] LABS: Appearance Urine Clear (Clear); Bilirubin Urine Negative (Negative); Blood Urine Negative (Negative); Color Urine Yellow; Glucose Urine UA Negative (Negative); Ketones Urine 1+ (Negative); Leukocyte Esterase Urine Negative (Negative); Nitrite Urine Negative (Negative); Protein Urine Negative (Negative); Specific Gravity Urine 1.017 (1.000-1.030); Urobilinogen Urine Negative (Negative)
--- NOTE | 2024-06-08 18:41 | CT Scan Report ---
INDICATION: Lower abdominal pain. COMPARISON: No relevant priors available. TECHNIQUE: Axial CT images of the abdomen and pelvis were obtained following IV contrast administration. Coronal and sagittal reformations were reviewed. FINDINGS: Visualized lung bases appear unremarkable. In the gallbladder is surgically absent. Mild delay ductal prominence likely relates to patient's post cholecystectomy state. The spleen, pancreas and adrenal glands appear unremarkable. No hydronephrosis. Cysts noted No evidence of bowel obstruction/appendicitis. Sigmoid colonic wall thickening with adjacent inflammatory fat stranding and diverticula present. No free air. No drainable fluid collection. The urinary bladder appears unremarkable. Right hip hardware with streak artifact in the pelvis. No acute osseous abnormality evident. IMPRESSION: Sigmoid diverticulitis. No free air or abscess. Electronically signed by Davion Tena 06-08-2024 6:41 PM
[2024-06-08] MEDS: PIPERACILLIN/TAZOBACTAM 4.5 GM/100 ML BAG IV ONE (19:12)
[2024-06-08] MEDS: HYDROmorphone INJ 0.5 MG/0.5 ML SYR IV STA (19:50)
[2024-06-08] MEDS ORDERED: PROMETHAZINE 6.25 MG/50.25 ML BAG IV PRN (20:11)
[2024-06-08] MEDS ORDERED: KETOROLAC TROMETHAMINE 15 MG/ML VIAL IV PRN (20:11)
[2024-06-08] MEDS: ACETAMINOPHEN 325 MG TAB PO PRN (20:54)
--- NOTE | 2024-06-08 20:57 | History & Physical Report ---
Date of Service June 08, 2024 Assessment & Plan (1) Sepsis: Plan: Sepsis Secondary to acute sigmoid diverticulitis First episode hyperlipidemia, on statin Rx prediabetes, hemoglobin A1c of 5.6 last month past tobacco abuse Admit to medical CS, Zosyn Clear liquid diet for now Outpatient GI consult for diverticulitis (Of note, patient for outpatient colonoscopy next month at [facility]) DVT prophylaxis with Lovenox subcu Full code Text document was generated using [employer] voice recognition software. It may contain grammatical or spelling errors. Kindly contact undersigned for clarification of any documentation item in question. History of Present Illness Chief Complaint: Abdominal pain Primary Care Provider: Emilia Ahumada DO History obtained from patient, family, and records. Medical history significant for hyperlipidemia, prediabetes, diverticulosis, past tobacco abuse. Last confinement 2019 under Orthopedics service for elective right hip surgery. Unremarkable postop course. Over the last week, patient noted achy low back pain which later moved to his lower abdomen and groin. Patient initially thought pain was from back spasm. Some chills at home. Denies constipation, diarrhea, or hematochezia symptoms. No chest pain or SOB. Zosyn administered at the ER for diverticulitis. No prior episodes. 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 Allergies Allergy/AdvReac Type Severity Reaction Status Date / Time No Known Allergies Allergy Verified 12/06/19 05:40 Home Medications Medication Instructions Recorded Confirmed Type ascorbic acid (vitamin C) 500 mg 500 mg PO QAM 11/15/19 06/08/24 History tablet (Vitamin C) cyanocobalamin (vitamin B-12) 500 500 mcg PO QAM 11/15/19 06/08/24 History mcg tablet atorvastatin 40 mg tablet 40 mg PO DAILY 06/08/24 06/08/24 History Past Med/Surg History Problem List (Updated 06/09/24 @ 09:10 by Sumeet Phelps MD) Sepsis Sigmoid diverticulitis (Acute) Status post total hip replacement, right Lumbar spondylosis Arthritis of right hip Medical History (Updated 06/09/24 @ 09:10 by Sumeet Phelps MD) Encounter for pre-operative examination Chronic back pain lower back Surgical History History of cholecystectomy History of colonoscopy Social History Smoking Status: Former smoker Tobacco Type: Cigarettes Second Hand Exposure: No; Do You Dip or Chew Tobacco: No; Tobacco Cessation Education Requested by Patient: No Hx Alcohol Use: Yes Alcohol type: beer Hx Substance Use: No Preferred Language: Guatemalan Communication Ability: Effective 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 Beliefs That Will Affect Care: None marital status: Current Living Situation: Spouse Other Information That Helps Us Care for You: No Feels Safe at Home: Yes Safety Concerns: Feels Safe At This Time Assistive Devices: None Review of Systems Review of Systems: As per HPI, all other systems reviewed and negative Physical Exam Physical Exam: GENERAL: Slightly uncomfortable, pleasant, covered in blankets, no respiratory distress SKIN: Normal color, warm HEENT: Alopecia, [place]ison palpebral conjunctivae, no ptosis, dry buccal mucosa NECK : Supple, no tenderness CHEST : CTA, no tenderness HEART : RRR, no obvious murmurs ABDOMEN: Some distention, hypogastric tenderness EXTREMITIES : No LE swelling/tenderness, palpable pulses, no other conspicuous deformities noted NEUROLOGIC : Coherent, no facial asymmetry, no other gross focality Results & Data Results & Data Vital Signs (Past 12 Hours) Vital Signs Temp Pulse Pulse Resp BP Pulse Ox O2 Del Method 06/08/24 19:02 99 H 16 95 Room Air 06/08/24 17:05 89 06/08/24 16:33 37.3 C 98 H 16 126/66 99 Laboratory Results Laboratory Results WBC 11.06 K/ul (4.8-10.8) H 06/08/24 16:37 RBC 4.61 M/uL (4.70-6.10) L 06/08/24 16:37 Hgb 14.0 g/dl (14.0-18.0) 06/08/24 16:37 Hct 40.4 % (42.0-52.0) L 06/08/24 16:37 MCV 87.6 fL (80.0-100.0) 06/08/24 16:37 MCH 30.4 pg (25.0-34.0) 06/08/24 16:37 MCHC 34.7 g/dL (32.0-36.0) 06/08/24 16:37 RDW Std Deviation 40.3 fL (36.4-46.3) 06/08/24 16:37 RDW Coeff of Kimberli 12.6 % (11.5-14.5) 06/08/24 16:37 Plt Count 179 K/uL (130-400) 06/08/24 16:37 MPV 9.6 fL (9.4-12.4) 06/08/24 16:37 Immature Gran % (Auto) 0.2 % 06/08/24 16:37 Neut % (Auto) 91.0 % 06/08/24 16:37 Lymph % (Auto) 4.3 % 06/08/24 16:37 [place] % (Auto) 4.2 % 06/08/24 16:37 Eos % (Auto) 0.1 % 06/08/24 16:37 Baso % (Auto) 0.2 % 06/08/24 16:37 Neut # (Auto) 10.06 K/uL (1.40-6.50) H 06/08/24 16:37 Lymph # (Auto) 0.48 K/uL (1.20-3.40) L 06/08/24 16:37 [place] # (Auto) 0.47 K/uL (0.11-0.59) 06/08/24 16:37 Eos # (Auto) 0.01 K/uL (0.00-0.50) 06/08/24 16:37 Baso # (Auto) 0.02 K/uL (0.00-0.20) 06/08/24 16:37 Immature Gran # (Auto) 0.02 K/uL (0.01-0.20) 06/08/24 16:37 Sodium 136 mmol/L (136-145) 06/08/24 16:37 Potassium 4.1 mmol/L (3.5-5.1) 06/08/24 16:37 Chloride 104 mmol/L (98-107) 06/08/24 16:37 Carbon Dioxide 25 mmol/L (21-32) 06/08/24 16:37 Anion Gap 7 (3-11) 06/08/24 16:37 BUN 17 mg/dl (6-23) 06/08/24 16:37 Creatinine 1.01 mg/dl (0.6-1.4) 06/08/24 16:37 Est Cr Clr Drug Dosing 75.8 ml/min 06/08/24 16:37 eGFR 84.09 06/08/24 16:37 BUN/Creatinine Ratio 16.8 (10-20) 06/08/24 16:37 Glucose 97 mg/dl (70-99(Fasting)) 06/08/24 16:37 Lactate 2.0 mmol/L (0.4-2.0) 06/08/24 19:06 Calcium 9.2 mg/dl (8.6-10.3) 06/08/24 16:37 Total Bilirubin 0.9 mg/dl (0.2-1.0) 06/08/24 16:37 AST 21 U/L (13-39) 06/08/24 16:37 ALT 30 U/L (7-52) 06/08/24 16:37 Alkaline Phosphatase 58 U/L (34-104) 06/08/24 16:37 Total Protein 6.4 gm/dl (6.0-8.3) 06/08/24 16:37 Albumin 4.1 gm/dl (3.4-5.0) 06/08/24 16:37 Globulin 2.3 gm/dl (2.5-4.0) L 06/08/24 16:37 Albumin/Globulin Ratio 1.8 (0.9-2) 06/08/24 16:37 Lipase 11 U/L (11-82) 06/08/24 16:37 Urine Color Yellow 06/08/24 17:49 Urine Appearance Clear (Clear) 06/08/24 17:49 Urine pH 7.0 (4.5-7.5) 06/08/24 17:49 Ur Specific [place] 1.017 (1.000-1.030) 06/08/24 17:49 Urine Protein Negative (Negative) 06/08/24 17:49 Urine Glucose (UA) Negative (Negative) 06/08/24 17:49 Urine Ketones 1+ (Negative) H 06/08/24 17:49 Urine Blood Negative (Negative) 06/08/24 17:49 Urine Nitrite Negative (Negative) 06/08/24 17:49 Urine Bilirubin Negative (Negative) 06/08/24 17:49 Urine Urobilinogen Negative (Negative) 06/08/24 17:49 Ur Leukocyte Esterase Negative (Negative) 06/08/24 17:49 Impressions Abdomen/Pelvis CT 06/08/24 16:47 INDICATION: Lower abdominal pain. COMPARISON: No relevant priors available. TECHNIQUE: Axial CT images of the abdomen and pelvis were obtained following IV contrast administration. Coronal and sagittal reformations were reviewed. FINDINGS: Visualized lung bases appear unremarkable. In the gallbladder is surgically absent. Mild delay ductal prominence likely relates to patient's post cholecystectomy state. The spleen, pancreas and adrenal glands appear unremarkable. No hydronephrosis. Cysts noted No evidence of bowel obstruction/appendicitis. Sigmoid colonic wall thickening with adjacent inflammatory fat stranding and diverticula present. No free air. No drainable fluid collection. The urinary bladder appears unremarkable. Right hip hardware with streak artifact in the pelvis. No acute osseous abnormality evident. IMPRESSION: Sigmoid diverticulitis. No free air or abscess. Electronically signed by Davion Tena 06-08-2024 6:41 PM
[2024-06-08] MEDS ORDERED: LORazepam 0.5 MG TAB PO PRN (21:14)
[2024-06-08 21:32] LABS: Magnesium 1.7 mg/dl (1.7-2.4)
[2024-06-08] MEDS: KETOROLAC TROMETHAMINE 15 MG/ML VIAL IV STA (21:34)
[2024-06-08] MEDS: oxyCODONE HCL IR 5 MG TAB (IMMEDIATE RELEASE) PO PRN (23:36)
[2024-06-09] MEDS: PIPERACILLIN/TAZOBACTAM 4.5 GM/100 ML BAG IV SCH (01:51)
--- OUTSIDE RECORDS SUMMARY | 2024-06-09 06:53 | External Medical Summary ---
Author Name Unknown Address Unknown Organization K01:[facility] [place] - [address] [id number] Laboratory Report Ordering Provider Test Date Status JOVITA PABLO 02/11/2024 13:45:53 Final Observation Date Value Abnormality Reference (Units ) Status BUN 02/11/2024 13:45:53 20 6-20 (mg/dL) Final Creatinine 02/11/2024 13:45:53 1.1 0.6-1.2 (mg/dL) Final Glomerular filtration rate/1.73 sq M.predicted [Volume Rate/Area] in Serum, Plasma or Blood by Creatinine-based formula (CKD-EPI) 02/11/2024 13:45:53 78 >=60 (mL/min) Final eGFR is calculated based on the CKD-EPI 2020 equation. Sodium 02/11/2024 13:45:53 138 135-146 (m mol/L) Final Potassium 02/11/2024 13:45:53 4.6 3.5-5.1 (m mol/L) Final Cl 02/11/2024 13:45:53 102 98-107 (mm ol/L) Final CO2 02/11/2024 13:45:53 25 22-32 (mmo l/L) Final Anion gap 02/11/2024 13:45:53 11 7-15 (mmol /L) Final Glucose 02/11/2024 13:45:53 77 70-120 (mg /dL) Final Albumin 02/11/2024 13:45:53 4.6 3.8-5.0 (g /dL) Final AST (Aspartate aminotransferase) 02/11/2024 13:45:53 17 10-50 (U/L) Final Alk Phos 02/11/2024 13:45:53 65 35-130 (U/ L) Final Bilirubin, Total 02/11/2024 13:45:53 0.2 <=1 .2 (mg/dL) Final Calcium 02/11/2024 13:45:53 9.5 8.4-10.2 ( mg/dL) Final Protein 02/11/2024 13:45:53 6.5 6.0-8.3 (g /dL) Final ALT (Alanine aminotransferase) 02/11/2024 13:45:53 25 10-50 (U/L) Final Performing Location [facility] [place] - [facility] [place] [facility] [place] [address] [facility] [id number]
--- OUTSIDE RECORDS SUMMARY | 2024-06-09 06:53 | External Medical Summary | Summary of Care ---
Author Name Unknown Organization [facility] Address [address] [place] [address] Phone [phone] Care Team Providers Care Motor Vehicle Inspector Name Role Phone Emilia Ahuamda Primary Care Provider [phone] Reason for Visit * Reason Comments Outpatient Testing Encounter Details Date Type Department Care Team (Late st Contact Info) Description 05/10/2024 12:10 PM EST Laboratory Laboratory [address] [place] [phone] [place] [address] Prediabetes; Hyperlipidemia with target LDL less than 100 Allergies Active Allergy Reactions Criticality Noted Date Comments Losartan 07/09/2021 Dizziness/palpitations documented as of this encounter (statuses as of 05/10/2024) Medications vitamin c (ASCORBIC ACID) 500 MG Tablet daily Active diphenhydrAMINE HCl 50 MG Oral Capsule (Benadryl)Indica tions:Rash and nonspecific skin eruption,Eczema, unspecified type Take 1 Cap by mouth at bedtime as needed for Itching. 30 Cap 1 Active valACYclovir HCl 1 GM Oral Tablet (Valtrex)Indicat ions:History of cold sores Take 2 Tablets by mouth every 12 hours x 1 day for cold sores. 8 Tablet 5 4 Active Triamcinolone Acetonide 0.1 % External Cream (Aristocort)Adenike cations:Rash and nonspecific skin eruption Apply topically to affected area 2 times a day. To affected area. 60 g 3 5 Active Atorvastatin Calcium 40 MG Oral Tablet (Lipitor) Take 1 Tablet by mouth in the morning. 90 Tablet 3 5 Active documented as of this encounter (statuses as of 05/10/2024) Active Problems Problem Noted Date Diagnosed Date Prediabetes 02/14/2024 Hyperlipidemia with target LDL less than 100 11/2023 Tinnitus of left ear 01/13/2023 Dizziness 01/13/2023 ETD (Eustachian tube dysfunction), bilateral 10/2022 Chronic right hip pain 10/17/2019 H/O cold sores 10/17/2019 Degeneration of lumbar intervertebral disc 09/20 Osteoarthritis of thumbs, bilateral 08/27/2016 Osteoarthritis of right hip 09/19/2014 Asbestos exposure 12/16/2011 documented as of this encounter (statuses as of 05/10/2024) Resolved Problems Problem Noted Date Diagnosed Date Resolved Date Lumbar spine pain 09/20/2017 01/24/2019 Trochanteric bursitis of right hip 09/20/2017 01/24/2019 Eczema of hand 08/22/2014 01/24/2019 Cholelithiasis 03/13/2013 08/22/2014 Slow transit constipation 12/16/2011 Mixed Dyslipidemia-low HDL 05/21/2010 1 03/26/2018 Other allergic rhinitis 01/21/200508/06 Overview (12/29/2016): ICD-10 update of inactive term SKIN SENSATION DISTURB 07/06/200312/15 Dermatitis 12/16/2011 documented as of this encounter (statuses as of 05/10/2024) Immunizations Name Administration Dates Next Due Covid-19 Ad26, Single Dose (Shanice/J&J) 07/08/2020 Pneumococcal Conjugate Vacci ne, 20-valent ([id number]) 05/10/2024 Seasonal Influenza Vac., MDV , IM, 0.5 mL (Fluzone) 02/08/2014,01/23/2013,12/10/2011,2010,12/06/2009,12/09/2006 Seasonal Influenza, PF, 6 M & above, IM , (FluLaval or Fluzone) 12/03/2020,02/07/2020,01/06/2019,2018 Seasonal Influenza, Quadriva lent, No Preserve, Mdck 01/10/2019 Seasonal Influenza, Trivalen t, (IIV3), PF, (Fluzone) 02/11/2024 TDAP (age 10 and older)(Boostrix) 03/25/2018 TDAP, Age 7 and older, IM (Adacel) 06/10/2007 Zoster Vaccine Recombinant (Shingrix) 02/07/2020 ,10/17/2019 documented as of this encounter Social History Tobacco Use Types Packs/Day Years Used Date Smoking Tobacco: Former Cigarettes 0.5 8 0 03/08/1977 - 03/08/1985 Smokeless Tobacco: Never Alcohol Use Standard Drinks/Week Comments Yes 0.8 (1 standard drink = 0.6 oz p ure alcohol) OCCASSIONAL PHQ-2 Answer Date Recorded PHQ Adult Total Score 0 05/10/2024 Hunger Vital Sign Answer Date Recorded Within the past 12 months, y ou worried that your food would run out before you got the money to buy more. Never true 05/14/19 23 Within the past 12 months, t he food you bought just didn't last and you didn't have money to get more. 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 Not on file Not on file documented as of this encounter Plan of Treatment Upcoming Encounters Date Type Department Care Team (Latest Contact Info) Description 07/13/2024 2:30 PM EDT Hospital Encounter [facility] End[facility] [address] [place] [phone] Natalie Barrett MD [address] [place] [address] 07/13/2024 2:30 PM EDT - 07/13/2024 3:00 PM EDT Surgery ENDO [facility], Endoscopy Room [facility] [address] [place] [phone] Natalie Barrett MD [address] [place] [address] COLONOSCOPY FLEXIBLE PROXIMAL DIAGNOSTIC 11/15/2024 7:40 AM EDT Office Visit [address] [place] [phone] Emilia Lezama MD [address] [place] [address] [place] [phone] Pending Results Name Type Priority Associated Diagnoses Date /Time BASIC METABOLIC PANEL Lab Routine Prediabetes Hyperlipidemia with target LDL less than 100 05/10/2024 12:04 PM EST HEMOGLOBIN A1C Lab Routine Prediabetes 05/10/2024 12:04 PM EST LIPID PANEL WITH DIRECT LDL IF TG IS HIGH Lab Routine Hyperlipidemia with target LDL less than 100 05/10/2024 12:04 PM EST Scheduled Procedures Name Priority Associated Diagnoses Date/Ti me COLONOSCOPY FLEXIBLE PROXIMAL DIAGNOSTIC Screening for colon cancer 07/13/2024 2:30 PM EDT Health Maintenance Due Date Last Done Comments Cologuard 2007 Fecal Occult Blood Test 2007 Sigmoidoscopy 2007 Colonoscopy 05/03/2022 05/03/2012, 05/03/2012 Colorectal Cancer Screening 05/03/2022 COVID-19 Vaccine ( season) 2023 07/08/2020 HbA1c 02/10/2025 02/11/2024, 05/13/2022 Depression Screening 05/10/2025 05/10/2024 DTap/Tdap Vaccines (3 - Td or Tdap) 03/25/2028 03/25/2018, 06/10/2007, 07/10/1996 Lipid Panel 02/10/2029 02/11/2024, 03/0 10/2022, 01/24/2019, Additional history exists Zoster Vaccines Completed 02/07/2020, 10/17/2019 Influenza Vaccine (FLU shot) Completed 08/2023, 12/03/2020, 02/07/2020, Additional history exists Pneumococcal Vaccine: 50+ Years Completed 05/10/2024 HPV (Gardasil) Vaccine Aged Out No lo nger eligible based on patient's age to complete this topic Hepatitis B Vaccine Aged Out No longe r eligible based on patient's age to complete this topic MENINGOCOCCAL (MENACTRA/MENVEO) Aged Out No longer eligible based on patient's age to complete this topic Meningitis B Vaccine (Bexsero/Trumemba) Aged Out No longer eligible based on patient's age to complete this topic documented as of this encounter Medical Devices Not on filedocumented as of this encounter Visit Diagnoses Diagnosis Prediabetes Other abnormal glucose Hyperlipidemia with target LDL less than 100 Other and unspecified hyperlipidemia Screening for colon cancer Special screening for malignant neoplasms, colon documented in this encounter Care Teams Motor Vehicle Inspector Relationship Specialty Start Date End Date Emilia Ahumada DO [address] [place] [address] [place] [id number] PCP - General Internal Medicine 10/17/19 documented as of this encounter
--- OUTSIDE RECORDS SUMMARY | 2024-06-09 06:53 | External Medical Summary ---
Author Name Unknown Address Unknown Organization [id number][place] [facility] [place] [facility] [place] [address] [facility] [address] [facility] [address] Laboratory Report Ordering Provider Test Date Status JOVITA PABLO 05/10/2024 12:04:11 Final Observation Date Value Abnormality Reference (Units ) Status BUN 05/10/2024 12:04:11 21 Above high normal 6-20 (mg/dL) Final Creatinine 05/10/2024 12:04:11 1.1 0.6-1.2 (mg/dL) Final Glomerular filtration rate/1.73 sq M.predicted [Volume Rate/Area] in Serum, Plasma or Blood by Creatinine-based formula (CKD-EPI) 05/10/2024 12:04:11 75 >=60 (mL/min) Final eGFR is calculated based on the CKD-EPI 2020 equation. Sodium 05/10/2024 12:04:11 141 135-146 (m mol/L) Final Potassium 05/10/2024 12:04:11 4.6 3.5-5.1 (m mol/L) Final Cl 05/10/2024 12:04:11 103 98-107 (mm ol/L) Final CO2 05/10/2024 12:04:11 25 22-32 (mmo l/L) Final Anion gap 05/10/2024 12:04:11 13 7-15 (mmol /L) Final Glucose 05/10/2024 12:04:11 91 70-120 (mg /dL) Final Calcium 05/10/2024 12:04:11 9.5 8.4-10.2 ( mg/dL) Final Performing Location [facility] [place] [address] [place] [address]
--- OUTSIDE RECORDS SUMMARY | 2024-06-09 06:53 | External Medical Summary ---
Author Name Unknown Address Unknown Organization [id number][place] [facility] [place] [address] [facility] [address] Laboratory Report Ordering Provider Test Date Status JOVITA PABLO SEIFERT 02/11/2024 13:45:53 Final Observation Date Value Abnormality Reference (Units ) Status Triglyceride 02/11/2024 13:45:53 175 Above high normal <=174 (mg/dL) Final Triglyceride Reference Range s (mg/dL):
<150 Acceptable
150-174 Borderline high
175-499 High
>=500 Very high Cholesterol 02/11/2024 13:45:53 208 Above high normal <200 (mg/dL) Final Total Cholesterol Reference Ranges (mg/dL):
<200 Desirable
200-239 Borderline high
>=240 High HDL 02/11/2024 13:45:53 45 >39 (mg/dL ) Final HDL Cholesterol Reference Ra nges (mg/dL):
>=60 High (Desirable)
<50 Low (Undesirable) For Females
<40 Low (Undesirable) For Males NON-HDL CHOLESTEROL 02/11/2024 13:45:53 163 Above high normal <=159 (mg/dL) Final Non-HDL Cholesterol Referenc e Range (mg/dL):
<100 Target level for high risk ASCVD patient
<130 Optimal for general population
130-159 Near optimal for general population
160-189 Borderline High
190-219 High
>=220 Very High LDL, (calculated) 02/11/2024 13:45:53 128 <= 129 (mg/dL) Final LDL Cholesterol Reference Ra nges (mg/dL):
<70 Target level for high risk ASCVD patient
<100 Optimal for general population
100-129 Near optimal for general population
130-159 Borderline high
160-189 High
>=190 Very high Performing Location [facility] [facility] [place] [address] [facility] [address]
--- OUTSIDE RECORDS SUMMARY | 2024-06-09 06:53 | External Medical Summary | Summary of Care ---
Author Name Unknown Organization [facility] Address [address] [place] [facility] [address] Phone [phone] Care Team Providers Care Professor Of Food Biochemistry Name Role Phone Ahumada Emilia Sofia Primary Care Provider Reason for Visit * Reason Onset Date Comments Medication Administration 02/11/2024 Flu an d/or Pneumo Inj Acute Encounter Details Date Type Department Care Team (Late st Contact Info) Description 02/11/2024 1:20 PM EST Office Visit Family Medicine [address] [place] [phone] Emilia Lezama MD [address] [place] [address] [place] [phone] Vertigo*; Need for prophylactic vaccination and inoculation against influenza; Lipid screening Allergies Active Allergy Reactions Criticality Noted Date Comments Losartan 07/09/2021 Dizziness/palpitations documented as of this encounter (statuses as of 02/11/2024) Medications vitamin c (ASCORBIC ACID) 500 MG Tablet daily Active B Complex Vitamins (VITAMIN B COMPLEX) Tablet Take 1 Tablet by mouth in the morning. Active diphenhydrAMINE HCl 50 MG Oral Capsule (Benadryl)Indic ations:Rash and nonspecific skin eruption,Eczema , unspecified type Take 1 Cap by mouth at bedtime as needed for Itching. 30 Cap 05/28/19 21 Active Vitamin E 100 UNIT Oral Capsule Take 1 Capsule by mouth in the morning. Active Triamcinolone Acetonide 0.1 % External Cream (Aristocort)Ind ications:Rash and nonspecific skin eruption Apply topically to affected area 2 times a day. To affected area. 60 g 5 02/24/20 23 Active valACYclovir HCl 1 GM Oral Tablet (Valtrex)Indica tions:History of cold sores Take 2 Tablets by mouth every 12 hours x 1 day for cold sores. 8 Tablet 5 08/16/19 24 Active Meclizine HCl 12.5 MG Oral Tablet (Antivert) Take 1 Tablet by mouth 3 times a day as needed for Dizziness. 30 Tablet 1 02/11/20 24 Active methylPREDNISol one 4 MG Oral Tablet Therapy Pack (Medrol Dosepack) follow package directions 21 Tablet 01/14/20 23 024 Discontinued Fluticasone Propionate 50 MCG/ACT Nasal Suspension (Flonase) Administer 2 Sprays into each nostril in the morning. 15.8 mL 01/14/20 23 024 Discontinued documented as of this encounter (statuses as of 02/11/2024) Active Problems Problem Noted Date Diagnosed Date Tinnitus of left ear 01/13/2023 Dizziness 01/13/2023 ETD (Eustachian tube dysfunction), bilateral 10/2022 Chronic right hip pain 10/17/2019 H/O cold sores 10/17/2019 Degeneration of lumbar intervertebral disc 09/20 Osteoarthritis of thumbs, bilateral 08/27/2016 Osteoarthritis of right hip 09/19/2014 Asbestos exposure 12/16/2011 documented as of this encounter (statuses as of 02/11/2024) Resolved Problems Problem Noted Date Diagnosed Date [...] as of this encounter (statuses as of 02/11/2024) Immunizations Name Administration Dates Next Due Covid-19 Ad26, Single Dose (Shanice/J&J) 07/08/2020 Seasonal Influenza Vac., MDV , IM, 0.5 [...] Date Recorded PHQ Adult Total Score 0 05/13/2022 Hunger Vital Sign Answer Date Recorded Within [...] 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 Not on file Not on file documented as of this encounter Last Filed Vital Signs Vital Sign Reading Time Taken Comments Blood Pressure 138/80 02/11/2024 1:08 PM EST Pulse 85 02/11/2024 1:08 PM EST Temperature 36.5 °C (97.7 °F) 02/11/2024 1:08 PM ES T Respiratory Rate - - Oxygen Saturation 96% 02/11/2024 1:08 PM EST Inhaled Oxygen Concentration - - Weight 78.9 kg (174 lb) 02/11/2024 1:08 PM EST Height 172.7 cm (5' 8") 02/11/2024 1:08 PM EST Body Mass Index 26.46 02/11/2024 1:08 PM EST documented in this encounter Progress Notes * Emilia Lezama MD - 02/11/2024 1:16 PM EST Images from the original note were not included. History of Present Illness Kareem Honeycutt is a 63 year old male that presents for Medication Administration (Flu and/or Pneumo Inj) and Acute Had vertigo back in Oct. Was able to the do the Aura at home and helped. In the last few months, feels constantly dizzy and lightheaded. Sometimes feels like the room is spinning. More of an "unstableness" per patient. Mostly in the morning. Distraction helps. Has tinnitus in his L ear. Constantlyfeels a little off balance. No nausea. Tried to do the Aura at home, little improvement this time. Review of Systems Constitutional: Negative for fever. Respiratory: Negative for shortness of breath. Cardiovascular: Negative for chest pain. Gastrointestinal: Negative for abdominal pain, constipation and diarrhea. Genitourinary: Negative for difficulty urinating. Skin: Negative for rash. Neurological: Positive for dizziness and light-headedness. Negative for syncope, speech difficulty,weakness, numbness and headaches. Physical Exam BP 138/80 | Pulse 85 | Temp 97.7 °F (36.5 °C) (Tympanic) | Ht 5' 8" (1.727 m) | Wt 174 lb (78.9 kg) | SpO2 96% | BMI 26.46 kg/m² | BSA 1.95 m² Physical Exam Vitals and nursing note reviewed. Constitutional: General: He is not in acute distress. HENT: Head: Normocephalic and atraumatic. Right Ear: Tympanic membrane normal. Left Ear: Tympanic membrane normal. Mouth/Throat: Mouth: Mucous membranes are moist. Eyes: Extraocular Movements: Extraocular movements intact. Comments: Optic disc and vasculature appear normal bilaterally Neck: Thyroid: No thyromegaly. Cardiovascular: Rate and Rhythm: Normal rate and regular rhythm. Pulmonary: Breath sounds: Normal breath sounds. No wheezing or rhonchi. Musculoskeletal: General: Normal range of motion. Cervical back: Normal range of motion and neck supple. Right lower leg: No edema. Left lower leg: No edema. Lymphadenopathy: Upper Body: Right upper body: No supraclavicular adenopathy. Left upper body: No supraclavicular adenopathy. Skin: General: Skin is warm and dry. Findings: No lesion or rash. Neurological: General: No focal deficit present. Mental Status: He is alert and oriented to person, place, and time. Cranial Nerves: Cranial nerves 2-12 are intact. Sensory: Sensation is intact. Motor: Motor function is intact. Deep Tendon Reflexes: Reflex Scores: Patellar reflexes are 4+ on the right side and 4+ on the left side. Comments: + [place] bilaterally Psychiatric: Mood and Affect: Mood normal. Behavior: Behavior normal. I have reviewed most recent labs BMP results Recent Labs Units 01/13/23 0934 05/13/22 0913 SODIUM - [facility] mmol/L 142 140 POTASSIUM - [facility] mmol/L 5.1 4.7 CHLORIDE - [facility] mmol/L 104 105 CO2 - [facility] mmol/L 27 26 CREATININE - [facility] mg/dL 1.2 1.1 BUN - [facility] mg/dL 18 23* CBC results Recent Labs Units 01/13/23 0934 05/13/22 0913 WBC K/uL 4.47 4.80 HGB g/dL 16.9* 14.8 HCT % 52.1* 47.6 PLT K/uL 227 247 TSH results Recent Labs Units 01/13/23 0934 TSH - [facility] uIU/mL 1.19 Hepatic panel results Recent Labs Units 01/13/23 0934 PROTEIN - [facility] g/dL 6.7 BILIRUBIN, TOTAL - [facility] mg/dL 0.3 ALKALINE PHOSPHATASE - [facility] U/L 69 AST - [facility] U/L 17 ALT - [facility] U/L 22 Assessment and Plan Vertigo Consistent with BPPV on exam; neuro exam negative for other findings or concerns. Will check labs to ensure no anemia or sugar issues causing lightheaded symptoms. Can try meclizine in the meantime to help with symptoms and given handout on Wero Rodríguez and Aura for at home. Consider MRI if persists - CBC WITH WBC DIFFERENTIAL; Future - HEMOGLOBIN A1C; Future - COMPREHENSIVE METABOLIC PANEL; Future Need for prophylactic vaccination and inoculation against influenza Flu shot given today. - INFLUENZA VAC, TRIVALENT, (IIV3), PF, 0.5 ML (FLUZONE) Lipid screening Screening lipid panel ordered. - LIPID PANEL WITH DIRECT LDL IF TG IS HIGH; Future Wrap-Up Follow Up: Return in about 3 months (around 05/11/2024) for Return with Physician me or PCP for routine and follow up vertigo. | For: Return with Physician me or PCP for routine and follow up vertigo Time: I spent a total of 30-39 minutes (exact time 31 mins) on the date of service in preparation, delivery, and documentation of the care provided to Kareem Honeycutt excluding any time spent in the performance of separately billed services. * Emilee Batista CMA - 02/11/2024 1:13 PM EST PRE - ADMINISTRATION DOCUMENTATION Are you experiencing any cold symptoms or fever? No Have you had Guillain-Homer Syndrome (an illness that causes paralysis) within the last 6 weeks? No Have you had the flu shot in the past? YES Have you ever had a reaction to the flu shot? No Emilee Batista CMA, 02/11/2024 1:13 PM Immunization Administration Documentation Time Out Procedure Performed: Yes Patient Identified (Ask Name/Date of ): Yes Does the patient have a fever greater than 101 degrees today? No Patient allergic to latex? No VFC Stock: No Immunization(s) verified: Yes, Immunization Name: Flu, VIS Sheet(s) given: No Verified Side and Site: Yes Verified Shot(s) with Parent(s)/Patient: Yes documented in this encounter Nursing Notes * Emilee Batista CMA - 02/11/2024 1:15 PM EST Pt here today for vertigo, for last 3 week constantly feels dizzy, worse in AM gets better through out the day. October started with a couple of episodes of vertigo but could Epply maneuver which helped documented in this encounter Plan of Treatment Upcoming Encounters Date Type Department Care Team (Latest Contact Info) Description 03/27/2024 1:00 PM EST Hospital Encounter [facility]O [facility], Endoscopy Room [facility] [address] [place] [phone] Calos Polanco MD [address] [place] [address] 03/27/2024 1:00 PM EST - 03/27/2024 1:30 PM EST Surgery ENDO [facility], Endoscopy Room [facility] [address] [place] [phone] Calos Polanco MD [address] [place] [address] COLONOSCOPY FLEXIBLE PROXIMAL DIAGNOSTIC Pending Results Name Type Priority Associated Diagnoses Date /Time LIPID PANEL WITH DIRECT LDL IF TG IS HIGH Lab Routine Lipid screening 02/11/2024 1:45 PM EST CBC WITH WBC DIFFERENTIAL Lab Routine Vertigo 02/11/2024 1:45 PM EST HEMOGLOBIN A1C Lab Routine Vertigo 02/11/2024 1:45 PM EST COMPREHENSIVE METABOLIC PANEL Lab Routine Vertigo 02/11/2024 1:45 PM EST Scheduled Orders Name Type Priority Associated Diagnoses Orde r Schedule LIPID PANEL WITH DIRECT LDL IF TG IS HIGH Lab Routine Lipid screening Expected: 02/11/2024 (Approximate), Expires: 02/10/2025 CBC WITH WBC DIFFERENTIAL Lab Routine Vertigo Expected: 02/11/2024 (Approximate), Expires: 02/10/2025 HEMOGLOBIN A1C Lab Routine Vertigo Expected: 02/11/2024 (Approximate), Expires: 02/10/2025 COMPREHENSIVE METABOLIC PANEL Lab Routine Vertigo Expected: 02/11/2024 (Approximate), Expires: 03/13/2025 Scheduled Procedures Name Priority Associated Diagnoses Date/Ti me COLONOSCOPY FLEXIBLE PROXIMAL DIAGNOSTIC Screening for colon cancer 03/27/2024 1:00 PM EST Health Maintenance Due Date Last Done Comments Cologuard 2007 Fecal Occult Blood Test 2007 Sigmoidoscopy 2007 Colonoscopy 05/03/2022 05/03/2012, 05/03/2012 Colorectal Cancer Screening 05/03/2022 Depression Screening 05/14/2023 05/13/2022 COVID-19 Vaccine ( season) 2023 07/08/2020 Diabetes Screening 01/13/2026 01/13/2023, 0 05/13/2022, 05/13/2022, Additional history exists Lipid Panel 05/14/2027 05/13/2022, 01/06, 08/24/2014, Additional history exists DTap/Tdap Vaccines (3 - Td or Tdap) 03/25/2028 03/25/2018, 06/10/2007, 07/10/1996 Zoster Vaccines Completed 02/07/2020, 10/17/2019 Influenza Vaccine (FLU shot) Completed 08/2023, 12/03/2020, 02/07/2020, Additional history exists HPV (Gardasil) Vaccine Aged Out No lo nger eligible based on patient's age to complete this topic Hepatitis B Vaccine Aged Out No longe r eligible based on patient's age to complete this topic MENINGOCOCCAL (MENACTRA/MENVEO) Aged Out No longer eligible based on patient's age to complete this topic Pneumococcal Vaccine: Pediatrics (0 to 5 Years) and At-Risk Patients (6 to 64 Years) Aged Out No longer eligible based on patient's age to complete this topic documented as of this encounter Medical Devices Not on filedocumented as of this encounter Visit Diagnoses Diagnosis Vertigo- Primary Dizziness and giddiness Need for prophylactic vaccination and inoculation against influenza Lipid screening Screening for lipoid disorders Screening for colon cancer Special screening for malignant neoplasms, colon documented in this encounter Care Teams Professor Of Food Biochemistry Relationship Specialty Start Date End Date Emilia Ahumada DO [address] [place] [address] [place] [phone] PCP - General Internal Medicine 10/17/19 documented as of this encounter
--- OUTSIDE RECORDS SUMMARY | 2024-06-09 06:53 | External Medical Summary ---
Author Name Unknown Address Unknown Organization [id number]:[facility] [place] [address] [facility] [address] Laboratory Report Ordering Provider Test Date Status JOVITA PABLO SEIFERT 05/10/2024 12:04:11 Final Observation Date Value Abnormality Reference (Units ) Status Triglyceride 05/10/2024 12:04:11 42 <=174 ( mg/dL) Final Triglyceride Reference Range s (mg/dL):
<150 Acceptable
150-174 Borderline high
175-499 High
>=500 Very high Cholesterol 05/10/2024 12:04:11 117 <200 (mg /dL) Final Total Cholesterol Reference Ranges (mg/dL):
<200 Desirable
200-239 Borderline high
>=240 High HDL 05/10/2024 12:04:11 50 >39 (mg/dL ) Final HDL Cholesterol Reference Ra nges (mg/dL):
>=60 High (Desirable)
<50 Low (Undesirable) For Females
<40 Low (Undesirable) For Males NON-HDL CHOLESTEROL 05/10/2024 12:04:11 67 <=159 (mg/dL) Final Non-HDL Cholesterol Referenc e Range (mg/dL):
<100 Target level for high risk ASCVD patient
<130 Optimal for general population
130-159 Near optimal for general population
160-189 Borderline High
190-219 High
>=220 Very High LDL, (calculated) 05/10/2024 12:04:11 59 <= 129 (mg/dL) Final LDL Cholesterol Reference Ra nges (mg/dL):
<70 Target level for high risk ASCVD patient
<100 Optimal for general population
100-129 Near optimal for general population
130-159 Borderline high
160-189 High
>=190 Very high Performing Location [facility]ORY [facility] [place] - [address] [facility] [address]
--- OUTSIDE RECORDS SUMMARY | 2024-06-09 06:53 | External Medical Summary ---
Author Name Unknown Address Unknown Organization K01:LABORATORY [facility] [place] - [address] [place] [address] Laboratory Report Ordering Provider Test Date Status SAMYJACQUIHETAL AGUILAR 05/10/2024 12:04:11 Final Observation Date Value Abnormality Reference (Units ) Status HbA1C 05/10/2024 12:04:11 5.6 4.0-5.6 (% ) Final The use of HbA1c to monitor glycemic status is based on normal hemoglobin and HbA composition. This test should not be used in patients with abnormal hemoglobin that affects the half life of the red blood cell or the in vivo glycation rates. Glucose, estimated average 05/10/2024 12:04:11 114 <126 (mg/dL) Final Performing Location LABORATORY [facility] [place] [facility] [address] [facility] [address]
--- OUTSIDE RECORDS SUMMARY | 2024-06-09 06:53 | External Medical Summary ---
Author Name Unknown Address Unknown Organization K01[place] [facility] [place] [address] [facility] [address] Laboratory Report Ordering Provider Test Date Status JOVITA PABLOT 02/11/2024 13:45:53 Final Observation Date Value Abnormality Reference (Units ) Status SYNC LEUKOCYTES IN BLOOD BY AUTOMATED COUNT 02/11/2024 13:45:53 5.57 4.00-10.80 (K/uL) Final Segs 02/11/2024 13:45:53 57.3 40.0-75.0 (%) Final Lymphs % 02/11/2024 13:45:53 27.6 18.0-42.0 (%) Final Monos 02/11/2024 13:45:53 9.7 1.0-11.0 (%) Final Eosinophils 02/11/2024 13:45:53 4.3 0.0-6.0 (%) Final Basos 02/11/2024 13:45:53 0.9 0.0-2.0 (%) Final Immature Granulocyte, Percent 02/11/2024 13:45:53 0.2 0.0-2.0 (%) Final Absolute Segs 02/11/2024 13:45:53 3.19 1.80-7.70 (K/uL) Final Lymphs, absolute 02/11/2024 13:45:53 1.54 1.00-4.80 (K/ul) Final Monos, Abs 02/11/2024 13:45:53 0.54 0.00-1.10 (K/uL) Final Eos, Abs 02/11/2024 13:45:53 0.24 0.00-0.70 (K/uL) Final Basos, Abs 02/11/2024 13:45:53 0.05 0.00-0.20 (K/uL) Final Immature Granulocytes, Number 02/11/2024 13:45:53 0.01 0.00-0.20 (K/uL) Final Performing Location [place] [facility] [place] [address] [facility] [address]
--- OUTSIDE RECORDS SUMMARY | 2024-06-09 06:53 | External Medical Summary | Summary of Care ---
Author Name Unknown Organization [facility] Address [address] [place] [address] Phone [phone] Care Team Providers Care Road Monkey Name Role Phone Samy Valencia DO Primary Care Provider Reason for Visit * Reason Onset Date Comments Medication Refill 03/15/2024 Encounter Details Date Type Department Care Team (Late st Contact Info) Description 03/15/2024 Refill Family Medicine [address] [phone] [address]y Valencia [address] [address] Rash and nonspecific skin eruption Allergies Active Allergy Reactions Criticality Noted Date Comments Losartan 07/09/2021 Dizziness/palpitations documented as of this encounter (statuses as of 03/15/2024) Medications vitamin c (ASCORBIC ACID) 500 MG Tablet daily Active B Complex Vitamins (VITAMIN B COMPLEX) Tablet Take 1 Tablet by mouth in the morning. Active diphenhydrAMINE HCl 50 MG Oral Capsule (Benadryl)Indic ations:Rash and nonspecific skin eruption,Eczema , unspecified type Take 1 Cap by mouth at bedtime as needed for Itching. 30 Cap 1 Active Vitamin E 100 UNIT Oral Capsule Take 1 Capsule by mouth in the morning. Active valACYclovir HCl 1 GM Oral Tablet (Valtrex)Indica tions:History of cold sores Take 2 Tablets by mouth every 12 hours x 1 day for cold sores. 8 Tablet 5 4 Active Meclizine HCl 12.5 MG Oral Tablet (Antivert) Take 1 Tablet by mouth 3 times a day as needed for Dizziness. 30 Tablet 1 4 Active Atorvastatin Calcium 40 MG Oral Tablet (Lipitor) Take 1 Tablet by mouth in the morning. 90 Tablet 3 4 Active Triamcinolone Acetonide 0.1 % External Cream (Aristocort)Ind ications:Rash and nonspecific skin eruption Apply topically to affected area 2 times a day. To affected area. 60 g 3 5 Active Triamcinolone Acetonide 0.1 % External Cream (Aristocort)Ind ications:Rash and nonspecific skin eruption Apply topically to affected area 2 times a day. To affected area. 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 To affected area. Authorizing Provider: SAMY VALENCIA * Telephone Encounter - Emilee Batista CMA - 03/15/2024 1:43 PM ESTPending Prescriptions: Disp Refills Triamcinolone Acetonide 0.1 % External Cre*60 g 3 Sig: Apply topically to affected area 2 times a day. To affected area. * Telephone Encounter - Ana Rosa Camilo OSA - 03/15/2024 10:27 AM EST Did you pend patient's preferred pharmacy and medication before forwarding?yes Pharmacy: [facility], [address] [place] Pending Prescriptions: Disp Refills Triamcinolone Acetonide 0.1 % External Cr*60 g 5 Sig: Apply topically to affected area 2 times a day. To affected area. Last Visit: 02/11/2024 (in office), Visit date not found (telemedicine) Next Visit: 05/10/2024 If no future appointments scheduled, and last appointment is greater than a year ago, please schedule patient for a follow-up appointment Last date the medication was ordered: 02-23-23 Is this request for a controlled substance?No Urine Drug Screen:No results found for this or any previous visit. Patient Phone Numbers Labs: Lab Results Component Value Date/Time CREAT 1.1 02/11/2024 01:45 PM CREAT 1.1 01/24/2019 03:54 PM POTASSIUM 4.6 02/11/2024 01:45 PM POTASSIUM 4.4 01/24/2019 03:54 PM TSH 1.19 01/13/2023 09:34 AM TSH 1.39 01/24/2019 03:54 PM LDL 128 02/11/2024 01:45 PM LDL 107 01/24/2019 03:54 PM LDL 124 02/08/2014 04:38 PM LDLCALC 130 (H) 08/24/2014 12:00 AM ALT 25 02/11/2024 01:45 PM ALT 29 01/31/2013 02:42 PM HGBA1C 5.9 (H) 02/11/2024 01:45 PM documented in this encounter Plan of Treatment Upcoming Encounters Date Type Department Care Team (Latest Contact Info) Description 05/10/2024 11:40 AM EST Office Visit Family Medicine [address] [place] [phone] Samy Lezama MD [address] [place] [address] [place] [phone] 07/13/2024 2:30 PM EDT Hospital Encounter ENDO [facility], Endoscopy Room [facility] [address] [place] [phone] Natalie Barrett MD [address] [place] [address] 07/13/2024 2:30 PM EDT - 07/13/2024 3:00 PM EDT Surgery ENDO [facility], Endoscopy Room [facility] [address] [place] [phone] Natalie Barrett MD [address] [place] [address] COLONOSCOPY FLEXIBLE PROXIMAL DIAGNOSTIC Scheduled Procedures Name Priority Associated Diagnoses Date/Ti me COLONOSCOPY FLEXIBLE PROXIMAL DIAGNOSTIC Screening for colon cancer 07/13/2024 2:30 PM EDT Health Maintenance Due Date Last Done Comments Cologuard 2007 Fecal Occult Blood Test 2007 Sigmoidoscopy 2007 Pneumococcal Vaccine: 50+ Years (1 of 1 - PCV) 2012 Colonoscopy 05/03/2022 05/03/2012, 05/03/2012 Colorectal Cancer Screening 05/03/2022 Depression Screening 05/14/2023 05/13/2022 COVID-19 Vaccine (2 - season) 2023 07/08/2020 HbA1c 02/10/2025 02/11/2024, 05/13/2022 DTap/Tdap Vaccines (3 - Td or Tdap) 03/25/2028 03/25/2018, 06/10/2007, 07/10/1996 Lipid Panel 02/10/2029 02/11/2024, 10/2022, 01/24/2019, Additional history exists Zoster Vaccines [...] as of this encounter Visit Diagnoses Diagnosis Rash and nonspecific skin eruption Rash and other nonspecific skin eruption Screening for colon cancer Special screening for malignant neoplasms, colon documented in this encounter Care Teams Road Monkey Relationship Specialty Start Date End Date Samy Valencia DO [address] [place] [address] [place] [address] PCP - General Internal Medicine 10/17/19 documented as of this encounter
--- OUTSIDE RECORDS SUMMARY | 2024-06-09 06:53 | External Medical Summary ---
Author Name Unknown Address Unknown Organization K01:[place] [facility] [place] [address] [facility] [address] Laboratory Report Ordering Provider Test Date Status SAMYJOVITA JEFF 02/11/2024 13:45:53 Final Observation Date Value Abnormality Reference (Units ) Status HbA1C 02/11/2024 13:45:53 5.9 Above high normal 4. 0-5.6 (%) Final The use of HbA1c to monitor glycemic status is based on normal hemoglobin and HbA composition. This test should not be used in patients with abnormal hemoglobin that affects the half life of the red blood cell or the in vivo glycation rates. Glucose, estimated average 02/11/2024 13:45:53 123 <126 (mg/dL) Final Performing Location [facility] [facility] [place] [address] [facility] [address]
--- OUTSIDE RECORDS SUMMARY | 2024-06-09 06:53 | External Medical Summary | Summary of Care ---
Author Name Unknown Organization [facility] Address [address] [place] [address] Phone [phone] Care Team Providers Care Conference Service Coordinator Name Role Phone Ahumada Emilia Sofia Primary Care Provider [phone] Reason for Visit * Reason Comments Outpatient Testing Encounter Details Date Type Department Care Team (Late st Contact Info) Description 02/11/2024 2:00 PM EST Laboratory Laboratory [address] [place] [phone] [place] [address] Lipid screening; Vertigo Allergies Active Allergy Reactions Criticality Noted Date [...] To affected area. 60 g 5 3 Active valACYclovir HCl 1 GM Oral Tablet (Valtrex)Indicat ions:History of cold sores Take 2 Tablets by mouth every 12 hours x 1 day for cold sores. 8 Tablet 5 4 Active Meclizine HCl 12.5 MG Oral Tablet (Antivert) Take 1 Tablet by mouth 3 times a day as needed for Dizziness. 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 Not on file documented as of this encounter Plan of Treatment Upcoming Encounters Date Type Department Care Team (Latest Contact Info) Description 03/27/2024 1:00 PM EST Hospital Encounter ENDO [facility], Endoscopy Room [facility] [address] [place] [phone] Calos Polanco MD [address] [place] [address] 03/27/2024 1:00 PM EST - 03/27/2024 1:30 PM EST Surgery ENDO [facility], Endoscopy Room [facility] [address] [place] [phone] Calos Polanco MD [address] [place] [address] COLONOSCOPY FLEXIBLE PROXIMAL DIAGNOSTIC Pending Results Name Type Priority Associated Diagnoses Date /Time LIPID PANEL WITH DIRECT LDL IF TG IS HIGH Lab Routine Lipid screening 02/11/2024 1:45 PM EST CBC WITH WBC DIFFERENTIAL Lab Routine Vertigo 02/11/2024 1:45 PM EST HEMOGLOBIN A1C Lab Routine Vertigo 02/11/2024 1:45 PM EST COMPREHENSIVE METABOLIC PANEL Lab Routine Vertigo 02/11/2024 1:45 PM EST CBC Lab Routine Vertigo 02/11/2024 1:45 PM EST DIFFERENTIAL, AUTOMATED Lab Routine Vertigo 02/11/2024 1:45 PM EST Scheduled Procedures Name Priority Associated [...] as of this encounter Visit Diagnoses Diagnosis Lipid screening Screening for lipoid disorders Vertigo Dizziness and giddiness Screening for colon cancer Special screening for malignant neoplasms, colon documented in this encounter Care Teams Conference Service Coordinator Relationship Specialty Start Date End Date Emilia Ahumada DO [address] [place] [address] [place] [address] PCP - General Internal Medicine 10/17/19 documented as of this encounter
--- OUTSIDE RECORDS SUMMARY | 2024-06-09 06:53 | External Medical Summary | Summary of Care ---
Author Name Unknown Organization [facility] Address [address] [place] [address] Phone [phone] Care Team Providers Care Heel Trimmer Name Role Phone Emilia Ahumada Mae Primary Care Provider Reason for Visit * Reason Comments Follow Up Encounter Details Date Type Department Care Team (Late st Contact Info) Description 05/10/2024 11:40 AM EST Office Visit Family Medicine [address] [phone] Emilia Lezama MD [address] [place] [address] [place] [phone] Prediabetes*; Hyperlipidemia with target LDL less than 100; Screening for depression; Need for pneumococcal vaccination; Colon cancer screening Allergies Active Allergy Reactions Criticality Noted Date Comments Losartan 07/09/2021 Dizziness/palpitations documented as of this encounter (statuses as of 05/10/2024) Medications vitamin c (ASCORBIC ACID) 500 MG Tablet daily Active diphenhydrAMINE HCl 50 MG Oral Capsule (Benadryl)Indic ations:Rash and nonspecific skin eruption,Eczema , unspecified type Take 1 Cap by mouth at bedtime as needed for Itching. 30 Cap 05/28/19 21 Active valACYclovir HCl 1 GM Oral Tablet (Valtrex)Indica tions:History of cold sores Take 2 Tablets by mouth every 12 hours x 1 day for cold sores. 8 Tablet 5 08/16/19 24 Active Triamcinolone Acetonide 0.1 % External Cream (Aristocort)Ind ications:Rash and nonspecific skin eruption Apply topically to affected area 2 times a day. To affected area. 60 g 3 03/15/19 25 Active Atorvastatin Calcium 40 MG Oral Tablet (Lipitor) Take 1 Tablet by mouth in the morning. 90 Tablet 3 05/11/19 25 Active B Complex Vitamins (VITAMIN B COMPLEX) Tablet Take 1 Tablet by mouth in the morning. 025 Discontinued Vitamin E 100 UNIT Oral Capsule Take 1 Capsule by mouth in the morning. 025 Discontinued Meclizine HCl 12.5 MG Oral Tablet (Antivert) Take 1 Tablet by mouth 3 times a day as needed for Dizziness. 30 Tablet 1 02/11/20 24 025 Discontinued Atorvastatin Calcium 40 MG Oral Tablet (Lipitor) Take 1 Tablet by mouth in the morning. 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 Not on file Not on file documented as of this encounter Last Filed Vital Signs Vital Sign Reading Time Taken Comments Blood Pressure 130/80 05/10/2024 11:29 AM EST Pulse 79 05/10/2024 11:29 AM EST Temperature 36.1 °C (96.9 °F) 05/10/2024 1 1:29 AM EST Respiratory Rate - - Oxygen Saturation 96% 05/10/2024 11: 29 AM EST Inhaled Oxygen Concentration - - Weight 80.2 kg (176 lb 14.4 oz) 025 11:29 AM EST Height 172.7 cm (5' 8") 05/10/2024 11:2 9 AM EST Body Mass Index 26.9 05/10/2024 11:29 AM EST documented in this encounter Progress Notes * Rebecca Begum, Emilia Rachel MD - 05/10/2024 11:30 AM EST Images from the original note were not included. History of Present Illness Kareem Honeycutt is a 64 year old male that presents for Follow Up History of Present Illness The patient, with a history of elevated cholesterol and prediabetes, presents for a follow-up visitafter three months. He has been adhering to his prescribed cholesterol medication, but expresses a desire to eventually discontinue it if possible. He has made dietary changes and is curious about the impact of these changes on his lab results. He has not been as active during the winter months, but plans to resume regular walking and biking as the weather improves. He also reports a history of vertigo, which has been well-controlled recently. The patient denies any feelings of depression or hopelessness. He has a colonoscopy scheduled for the near future and is due for a pneumonia vaccine. Has appt July 13 for colo Physical Exam BP 153/84 | Pulse 79 | Temp 96.9 °F (36.1 °C) (Infrared ) | Ht 5' 8" (1.727 m) | Wt 176 lb 14.4 oz (80.2 kg) | SpO2 96% | BMI 26.90 kg/m² | BSA 1.96 m² 130/80 Physical Exam Vitals and nursing note reviewed. Constitutional: General: He is not in acute distress. HENT: Head: Normocephalic and atraumatic. Mouth/Throat: Mouth: Mucous membranes are moist. Eyes: Extraocular Movements: Extraocular movements intact. Neck: Thyroid: No thyromegaly. Cardiovascular: Rate and Rhythm: Normal rate and regular rhythm. Pulmonary: Breath sounds: Normal breath sounds. No wheezing or rhonchi. Musculoskeletal: General: Normal range of motion. Cervical back: Normal range of motion and neck supple. Lymphadenopathy: Cervical: No cervical adenopathy. Upper Body: Right upper body: No supraclavicular adenopathy. Left upper body: No supraclavicular adenopathy. Skin: General: Skin is warm and dry. Findings: No lesion or rash. Neurological: General: No focal deficit present. Mental Status: He is alert and oriented to person, place, and time. Psychiatric: Mood and Affect: Mood normal. Behavior: Behavior normal. I have reviewed most recent labs BMP results Recent Labs Units 02/11/24 1345 01/13/23 0934 05/13/22 0913 SODIUM - [facility] mmol/L 138 142 140 POTASSIUM - [facility] mmol/L 4.6 5.1 4.7 CHLORIDE - [facility] mmol/L 102 104 105 CO2 - [facility] mmol/L 25 27 26 CREATININE - [facility] mg/dL 1.1 1.2 1.1 BUN - [facility] mg/dL 20 18 23* Lipid panel results Recent Labs Units 02/11/24 1345 05/13/22 0913 CHOLESTEROL - [facility] mg/dL 208* 192 HDL CHOLESTEROL - [facility] mg/dL 45 44 TRIGLYCERIDES - [facility] mg/dL 175* 123 HbA1c results Recent Labs Units 02/11/24 1345 05/13/22 0913 HEMOGLOBIN A1C - [facility] % 5.9* 5.7* Hepatic panel results Recent Labs Units 02/11/24 1345 01/13/23 0934 PROTEIN - [facility] g/dL 6.5 6.7 BILIRUBIN, TOTAL - [facility] mg/dL 0.2 0.3 ALKALINE PHOSPHATASE - [facility] U/L 65 69 AST - [facility] U/L 17 17 ALT - [facility] U/L 25 22 Assessment and Plan Assessment & Plan Prediabetes A1c was previously slightly elevated, indicating prediabetes. Emphasized the importance of lifestyle modifications for management. Order an A1c test and encourage lifestyle changes, including diet and exercise. Hyperlipidemia He is currently on statin therapy. Discussed the possibility of reducing medication if cholesterol levels improve with diet and lifestyle changes. Order a cholesterol panel and continue current statin medication. Discuss potential for medication reduction if cholesterol levels improve. Pneumococcal vaccination Recommended the pneumococcal vaccine due to age over 60 and increased risk for pneumonia complications. Explained that the vaccine reduces the severity of pneumonia if contracted. Administer the pneumococcal vaccine. Colorectal cancer screening He is scheduled for a colonoscopy on July 11, rescheduled from an earlier date. Follow-up Plan a follow-up in six months, contingent on lab results. Schedule a follow-up appointment in six months and review lab results. Prediabetes - BASIC METABOLIC PANEL; Future - HEMOGLOBIN A1C; Future Hyperlipidemia with target LDL less than 100 - BASIC METABOLIC PANEL; Future - LIPID PANEL WITH DIRECT LDL IF TG IS HIGH; Future Screening for depression PHQ2 score 0 today - DEPRESSION SCREENING PERFORMED Need for pneumococcal vaccination - PNEUMOCOCCAL VACC, PCV20, IM ([id number]) Colon cancer screening Scheduled for July Wrap-Up Follow Up: Return in about 6 months (around 11/10/2024) for Return with Physician. | For: Return withPhysician Time: I spent a total of 20-29 minutes (exact time 24 mins) on the date of service in preparation, delivery, and documentation of the care provided to Kareem Honeycutt excluding any time spent in the performance of separately billed services. Text in this note was generated using an [employer] documentation service. I discussed the use of a device to record and summarize our discussion today. All persons present during the encounter consented to its use. documented in this encounter Nursing Notes * Emilee Batista CMA - 05/10/2024 11:30 AM EST 3 month f/u Pt has no complaints/concerns since RADHA. Asking if needs f/u lab for cholesterol and A1c documented in this encounter Plan of Treatment Upcoming Encounters Date Type Department Care Team (Latest Contact Info) Description 07/13/2024 2:30 PM EDT Hospital Encounter ENDO [facility], Endoscopy Room [facility] [address] [place] [phone] Natalie Barrett MD [address] [place] [address] 07/13/2024 2:30 PM EDT - 07/13/2024 3:00 PM EDT Surgery ENDO [facility], Endoscopy Room [facility] [address] [place] [phone] Natalie Barrett MD [address] [place] [address] COLONOSCOPY FLEXIBLE PROXIMAL DIAGNOSTIC 11/15/2024 7:40 AM EDT Office Visit Family Medicine [address] [place] [phone] Emilia Lezama MD [address] [place] [address] [place] [phone] Pending Results Name Type Priority Associated Diagnoses Date /Time BASIC METABOLIC PANEL Lab Routine Prediabetes Hyperlipidemia with target LDL less than 100 05/10/2024 12:04 PM EST HEMOGLOBIN A1C Lab Routine Prediabetes 05/10/2024 12:04 PM EST LIPID PANEL WITH DIRECT LDL IF TG IS HIGH Lab Routine Hyperlipidemia with target LDL less than 100 05/10/2024 12:04 PM EST Scheduled Orders Name Type Priority Associated Diagnoses Orde r Schedule BASIC METABOLIC PANEL Lab Routine Prediabetes Hyperlipidemia with target LDL less than 100 Expected: 05/10/2024 (Approximate), Expires: 05/10/2025 HEMOGLOBIN A1C Lab Routine Prediabetes Expected: 05/10/2024 (Approximate), Expires: 05/10/2025 LIPID PANEL WITH DIRECT LDL IF TG IS HIGH Lab Routine Hyperlipidemia with target LDL less than 100 Expected: 05/10/2024 (Approximate), Expires: 05/10/2025 Scheduled Procedures Name Priority Associated Diagnoses Date/Ti [...] 03/25/2018, 06/10/2007, 07/10/1996 Lipid Panel 02/10/2029 02/11/2024, 0310/2022, 01/24/2019, Additional history exists Zoster Vaccines Completed [...] as of this encounter Visit Diagnoses Diagnosis Prediabetes- Primary Other abnormal glucose Hyperlipidemia with target LDL less than 100 Other and unspecified hyperlipidemia Screening for depression Need for pneumococcal vaccination Need for prophylactic vaccination against streptococcus pneumoniae (pneumococcus) Colon cancer screening Special screening for malignant neoplasms, colon Screening for colon cancer Special screening for malignant neoplasms, colon documented in this encounter Care Teams Heel Trimmer Relationship Specialty Start Date End Date Emilia Ahumada DO [address] [place] [address] [place] [address] PCP - General Internal Medicine 10/17/19 documented as of this encounter
--- OUTSIDE RECORDS SUMMARY | 2024-06-09 06:54 | External Medical Summary ---
Author Name Unknown Address Unknown Organization K01:LABORATORY [facility] [place] - [address] [facility] [address] [facility] [address] Laboratory Report Ordering Provider Test Date Status JOVITA PABLO 02/11/2024 13:45:53 Final Observation Date Value Abnormality Reference (Units ) Status WBC, Total 02/11/2024 13:45:53 5.57 4.00-10.80 (K/uL) Final RBC 02/11/2024 13:45:53 5.30 4.50-5.25 (M/uL) Final Hemoglobin 02/11/2024 13:45:53 15.9 14.0-16.8 (g/dL) Final HCT 02/11/2024 13:45:53 48.4 40.0-48.4 (%) Final MCV 02/11/2024 13:45:53 91.3 82.0-99.5 (fL) Final MCH 02/11/2024 13:45:53 30.0 27.0-34.0 (pg) Final MCHC 02/11/2024 13:45:53 32.9 32.0-36.0 (g/dL) Final RDW 02/11/2024 13:45:53 13.6 11.5-15.5 (%) Final Platelets 02/11/2024 13:45:53 232 140-400 (K/uL) Final MPV 02/11/2024 13:45:53 10.0 6.6-11.1 (fL) Final Nucleated erythrocytes/100 leukocytes [Ratio] in Blood by Automated count 02/11/2024 13:45:53 0 <=0 (/100 WBCs) Final Performing Location [facility]ORY [facility] [place] - [address] [place] [address]
[2024-06-09 07:20] LABS: Basophils # (auto) 0.03 K/uL (0.00-0.20); Basophils % (auto) 0.3 %; Eosinophils # (auto) 0.02 K/uL (0.00-0.50); Eosinophils % (auto) 0.2 %; Hematocrit (blood only) 37.6 % (42.0-52.0); Hemoglobin 12.5 g/dl (14.0-18.0); Immature Granulocytes # (auto) 0.04 K/uL (0.01-0.20); Immature Granulocytes % (auto) 0.4 %; Lymphocytes % (auto) 7.7 %; Mean Corpuscular Hemoglobin 29.5 pg (25.0-34.0); Mean Corpuscular Hgb Conc 33.2 g/dL (32.0-36.0); Mean Corpuscular Volume 88.7 fL (80.0-100.0); Mean Platelet Volume 9.3 fL (9.4-12.4); Monocytes # (auto) 0.41 K/uL (0.11-0.59); Monocytes % (auto) 4.5 %; Neutrophils # (auto) 7.88 K/uL (1.40-6.50); Neutrophils % (auto) 86.9 %; Platelet Count 165 K/uL (130-400); RDW Standard Deviation 42.3 fL (36.4-46.3); Red Blood Count 4.24 M/uL (4.70-6.10); White Blood Count 9.08 K/ul (4.8-10.8)
[2024-06-09 07:37] LABS: BUN Creatinine Ratio 13.8 (10-20); Calcium 8.6 mg/dl (8.6-10.3); Creatinine Clr Calc Pharmacy 58.9 ml/min
[2024-06-09] MEDS: CYANOCOBALAMIN (B-12) 500 MCG TABLET PO SCH (08:13)
[2024-06-09] MEDS: ATORVASTATIN 40 MG TAB PO SCH (08:13)
[2024-06-09] MEDS: ASCORBIC ACID 500 MG TAB PO SCH (08:13)
[2024-06-09] MEDS: ENOXAPARIN INJ 40 MG/0.4 ML SYR SQ SCH (08:15)
--- NOTE | 2024-06-09 17:49 | Hospitalist Progress Note ---
Date of Service June 09, 2024 Assessment & Plan (1) Sepsis: Plan: Sepsis Secondary to acute sigmoid diverticulitis First episode 06/09 clinically improving afebrile blood culture: pending continue clear liquids, if tolerating full liquids x 2 days IV Zosyn IV fluids PRN pain meds will need Colonoscopy hyperlipidemia, on statin Rx prediabetes, hemoglobin A1c of 5.6 last month past tobacco abuse DVT prophylaxis with Lovenox subcu Full code Disposition lives at home Admission and Anticipated Discharge Date Admission Date: June 08, 2024 Subjective ff up for acute diverticulitis, etc seen resting in bed, not in distress patient's Amanda at the bedside visiting states pain is much better today than yesterday 2-3/10 pain scale no nausea, no vomiting no BM yet today actually, last one yesterday no melena/hematochezia Review of Systems Review of Systems: all noted and negative except for above Physical Exam Physical Exam: General- oriented x 3, not in distress, speaks in sentences with no effort or accessory muscle use Eyes- anicteric Neck- no JVD Lungs- clear breath sounds bilaterally, no rales/wheezes Heart- normal rate, regular rhythm; no murmurs Abdomen- normal bowel sounds, nondistended, soft, moderate tenderness LLQ Extremities- no pretibial edema, no calf tenderness Neuro- alert, oriented x 3; no gross focal neurologic deficits Skin- warm & dry Results & Data Results & Data Vital Signs (Past 12 Hours) Vital Signs Temp Pulse Resp BP Pulse Ox O2 Del Method 06/09/24 17:12 36.6 C 93 H 16 132/65 97 Room Air 06/09/24 07:19 36.6 C 81 16 103/68 93 Room Air all noted and reviewed including below
[2024-06-09] MEDS: SODIUM CHLORIDE 0.9% 1,000 ML IV SCH (18:33)
[2024-06-10 07:45] LABS: Basophils # (auto) 0.01 K/uL (0.00-0.20); Basophils % (auto) 0.1 %; Eosinophils % (auto) 1.3 %; Hematocrit (blood only) 36.6 % (42.0-52.0); Hemoglobin 12.2 g/dl (14.0-18.0); Immature Granulocytes # (auto) 0.03 K/uL (0.01-0.20); Immature Granulocytes % (auto) 0.4 %; Lymphocytes # (auto) 0.84 K/uL (1.20-3.40); Lymphocytes % (auto) 11.3 %; Mean Corpuscular Hemoglobin 29.8 pg (25.0-34.0); Mean Corpuscular Hgb Conc 33.3 g/dL (32.0-36.0); Mean Corpuscular Volume 89.3 fL (80.0-100.0); Mean Platelet Volume 9.5 fL (9.4-12.4); Monocytes # (auto) 0.46 K/uL (0.11-0.59); Monocytes % (auto) 6.2 %; Neutrophils # (auto) 6.01 K/uL (1.40-6.50); Neutrophils % (auto) 80.7 %; Platelet Count 161 K/uL (130-400); RDW Coefficient of Variation 12.7 % (11.5-14.5); RDW Standard Deviation 41.7 fL (36.4-46.3); White Blood Count 7.45 K/ul (4.8-10.8)
[2024-06-10 07:55] LABS: Albumin Globulin Ratio 1.7 (0.9-2); Albumin Level 3.5 gm/dl (3.4-5.0); BUN Creatinine Ratio 10.7 (10-20); Calcium 8.5 mg/dl (8.6-10.3); Creatinine Clr Calc Pharmacy 68.4 ml/min; Globulin 2.1 gm/dl (2.5-4.0); Potassium 3.6 mmol/L (3.5-5.1); Total Protein 5.6 gm/dl (6.0-8.3)
--- NOTE | 2024-06-10 12:56 | Hospitalist Progress Note ---
Date of Service June 10, 2024 Assessment & Plan (1) Sepsis: Plan: Sepsis Secondary to acute sigmoid diverticulitis First episode 06/09 clinically improving afebrile blood culture: pending continue clear liquids, if tolerating full liquids x 2 days IV Zosyn IV fluids PRN pain meds will need Colonoscopy 06/10 Still having moderate left quadrant tenderness CT abdomen pelvis: 1. Progressive acute diverticulitis of the descending sigmoid junction compared to the 06/08/2024 study with interval perforation. 2. There are several small air and fluid filled collections/developing abscesses within the left lower quadrant adjacent to the perforated colon. No drainable fluid collections are present on today's study. 3. No bowel obstruction. 4. Trace pleural effusions with mild bibasilar atelectasis. 5. Left nephrolithiasis. Discussed with general surgery-Dr. Granger Recommend to keep patient strict n.p.o., continue IV Zosyn He will be reviewing the CAT scan and evaluating the patient soon Hold all p.o. medications Will order IV Ofirmev, morphine for pain Continue IV fluids Continue IV Zosyn Monitor closely Coronary artery calcification seen on CT abdomen and pelvis Will need aspirin and statin hyperlipidemia, on statin Rx prediabetes, hemoglobin A1c of 5.6 last month past tobacco abuse DVT prophylaxis with Lovenox subcu Full code Disposition lives at home Admission and Anticipated Discharge Date Admission Date: June 08, 2024 Subjective Follow-up for acute diverticulitis, etc. Seen resting in bed, comfortable, no distress States he had some episodes of breakthrough pain overnight, coming in waves, but no fevers or chills, nausea Having loose BMs, nonbloody No other new symptoms Review of Systems Review of Systems: all noted and negative except for above Physical Exam Physical Exam: General- oriented x 3, not in distress, speaks in sentences with no effort or accessory muscle use Eyes- anicteric Neck- no JVD Lungs- clear breath sounds bilaterally, no rales/wheezes Heart- normal rate, regular rhythm; no murmurs Abdomen- normal bowel sounds, nondistended, soft, Positive moderate tenderness left lower quadrant Extremities- no pretibial edema, no calf tenderness Neuro- alert, oriented x 3; no gross focal neurologic deficits Skin- warm & dry Results & Data Results & Data Vital Signs (Past 12 Hours) Vital Signs Temp Pulse Resp BP Pulse Ox O2 Del Method 06/10/24 07:25 36.8 C 77 16 117/69 95 Room Air
[2024-06-10] MEDS: OPTIRAY 320 100ml IV ONE (13:30)
--- NOTE | 2024-06-10 14:27 | CT Scan Report ---
ABDOMEN AND PELVIS CT WITH IV CONTRAST CT DOSE: 886.49 mGy.cm HISTORY: Acute left lower quadrant abdominal pain persistent LLQ tenderness, ff up acute diverticuli TECHNIQUE: Multiaxial CT images of the abdomen and pelvis were performed following the IV administrat ion of 93 cc of Optiray, A dose lowering technique was utilized adhering to the principles of ALARA. COMPARISON STUDY: 06/08/2024 FINDINGS: Heart is normal in size. Trace pleural effusions with dependent bibasilar atelectasis. Scat tered foci of pneumoperitoneum throughout the abdomen and pelvis are new from prior. Mildly enlarged spleen, 13.9 cm. Pancreas and adrenal glands are within normal limits. Cholecystectomy with likely po stsurgical biliary ductal dilation. Patency of the hepatic and portal veins. Punctate nonobstructing calculus of the superior pole left kidney.r renal cysts measure up to approxi mately 4 cm on the left. No hydronephrosis. Prostatomegaly. Mild nonspecific urinary bladder wall thi ckening. No abdominal aortic aneurysm or lymphadenopathy. No bowel obstruction. Extensive colonic diverticulosis. Acute diverticulitis of the descending sigmoi d junction, image 259 series 3 has progressed from prior. There is worsening pericolonic inflammation with trace free fluid and peritoneal thickening/enhancement. 3.3 cm air and fluid-filled collection of the pelvis on image 245 without discrete wall. Numerous adjacent smaller area fluid filled foci ar e also noted within the left lower quadrant. No drainable abscess. No acute fracture. Normal appendix . Right hip arthroplasty. No acute fracture. IMPRESSION: 1. Progressive acute diverticulitis of the descending sigmoid junction compared to the 06/08/2024 study with interval perforation. 2. There are several small air and fluid filled collections/developing abscesses within the left lowe r quadrant adjacent to the perforated colon. No drainable fluid collections are present on today's st udy. 3. No bowel obstruction. 4. Trace pleural effusions with mild bibasilar atelectasis. 5. Left nephrolithiasis. ACT 112: Negative or not required by law. The above report was generated using voice recognition software. It may contain grammatical, syntax o r spelling errors. Electronically signed by: Dung Garcia M.D. 06/10/2024 2:25 PM
[2024-06-10] MEDS ORDERED: MoRPHine SULFATE 4 MG/ML 1 ML CARP\\VIAL IV PRN (16:49)
--- NOTE | 2024-06-10 18:13 | Gastrointestinal Consultation ---
Date of Consultation June 10, 2024 Assessment & Plan (1) Acute diverticulitis: Complicated by localized fluid include collection and free air not drainable at this point. Clinically no peritoneal signs afebrile. Awaiting surgical input. However may still respond to medical therapy with antibiotics and hopefully can bleed emergent surgery at this time. Continue antibiotics n.p.o. Frequent physical exams to assess progress. (2) Sigmoid diverticulitis: History of Present Illness Reason for Consultation: Acute diverticulitis Attending Physician: Michael Perry MD History of Present Illness Patient usual state of good health until several days ago when he started developing progressive lower back and lower left abdominal pain. Pain intensified and he presented to the emergency room several days ago. CT scan imaging confirmed a diagnosis of sigmoid diverticulitis and he was started on antibiotics. Repeat CT scan for increasing pain demonstrated some localized air and fluid consistent with progression of his diverticulitis. No prior history of diverticulitis. Last colonoscopy was 10 years ago which was reportedly normal. Past history of cholecystectomy. Otherwise no prior GI symptoms. Allergies Allergy/AdvReac Type Severity Reaction Status Date / Time No Known Allergies Allergy Verified 12/06/19 05:40 Home Medications Medication Instructions Recorded Confirmed Type ascorbic acid (vitamin C) 500 mg 500 mg PO QAM 11/15/19 06/08/24 History tablet (Vitamin C) cyanocobalamin (vitamin B-12) 500 500 mcg PO QAM 11/15/19 06/08/24 History mcg tablet atorvastatin 40 mg tablet 40 mg PO DAILY 06/08/24 06/08/24 History Patient History Medical History (Updated 06/10/24 @ 18:10 by Selwyn Membreno MD) Encounter for pre-operative examination Chronic back pain lower back Surgical History History of cholecystectomy History of colonoscopy Social History Smoking Status: Former smoker Tobacco Type: Cigarettes Second Hand Exposure: No; Do You Dip or Chew Tobacco: No; Tobacco Cessation Education Requested by Patient: No Hx Alcohol Use: Yes Alcohol type: beer Hx Substance Use: No Preferred Language: Albanian Communication Ability: Effective 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 Beliefs That Will Affect Care: None marital status: Current Living Situation: Spouse Other Information That Helps Us Care for You: No Feels Safe at Home: Yes Safety Concerns: Feels Safe At This Time Assistive Devices: None Review of Systems Review of Systems: No fever No chills No SOB No CP + LLQ Abd pain Physical Exam Physical Exam: eyes; anicteric HENT No masses Chest clear to A Cor S1, S2 physiologic Abd: softer moderate tenderness LLQ no rebound no guarding Ext no edema eyes; anicteric HENT No masses Chest clear to A Cor S1, S2 physiologic Abd: softer nontender no masses Ext no edema Results & Data Vital Signs (Past 12 Hours) Vital Signs Temp Pulse Resp BP Pulse Ox O2 Del Method 06/10/24 15:11 36.4 C L 67 16 123/80 99 Room Air 06/10/24 07:25 36.8 C 77 16 117/69 95 Room Air Laboratory Results Laboratory Results - last 48 hr 06/08/24 06/08/24 06/09/24 16:37 19:06 06:45 WBC 9.08 RBC 4.24 L Hgb 12.5 L Hct 37.6 L MCV 88.7 MCH 29.5 MCHC 33.2 RDW Std Deviation 42.3 RDW Coeff of Kimberli 13.0 Plt Count 165 MPV 9.3 L Immature Gran % (Auto) 0.4 Neut % (Auto) 86.9 Lymph % (Auto) 7.7 [place] % (Auto) 4.5 Eos % (Auto) 0.2 Baso % (Auto) 0.3 Neut # (Auto) 7.88 H Lymph # (Auto) 0.70 L [place] # (Auto) 0.41 Eos # (Auto) 0.02 Baso # (Auto) 0.03 Immature Gran # (Auto) 0.04 Sodium 137 Potassium 4.0 Chloride 105 Carbon Dioxide 27 Anion Gap 5 BUN 18 Creatinine 1.30 Est Cr Clr Drug Dosing 58.9 eGFR 62.11 BUN/Creatinine Ratio 13.8 Glucose 97 Lactate 2.0 Calcium 8.6 Magnesium 1.7 Total Bilirubin AST ALT Alkaline Phosphatase Total Protein Albumin Globulin Albumin/Globulin Ratio 06/10/24 06:22 WBC 7.45 RBC 4.10 L Hgb 12.2 L Hct 36.6 L MCV 89.3 MCH 29.8 MCHC 33.3 RDW Std Deviation 41.7 RDW Coeff of Kimberli 12.7 Plt Count 161 MPV 9.5 Immature Gran % (Auto) 0.4 Neut % (Auto) 80.7 Lymph % (Auto) 11.3 [place] % (Auto) 6.2 Eos % (Auto) 1.3 Baso % (Auto) 0.1 Neut # (Auto) 6.01 Lymph # (Auto) 0.84 L [place] # (Auto) 0.46 Eos # (Auto) 0.10 Baso # (Auto) 0.01 Immature Gran # (Auto) 0.03 Sodium 138 Potassium 3.6 Chloride 106 Carbon Dioxide 28 Anion Gap 4 BUN 12 Creatinine 1.12 Est Cr Clr Drug Dosing 68.4 eGFR 74.28 BUN/Creatinine Ratio 10.7 Glucose 96 Lactate Calcium 8.5 L Magnesium Total Bilirubin 1.0 AST 16 ALT 33 Alkaline Phosphatase 51 Total Protein 5.6 L Albumin 3.5 Globulin 2.1 L Albumin/Globulin Ratio 1.7 Diagnostic Findings Abdomen/Pelvis CT 06/10/24 12:[address] WITH IV CONTRAST CT DOSE: 886.49 mGy.cm HISTORY: Acute left lower quadrant abdominal pain persistent LLQ tenderness, ff up acute diverticuli TECHNIQUE: Multiaxial CT images of the abdomen and pelvis were performed following the IV administration of 93 cc of Optiray, A dose lowering technique was utilized adhering to the principles of ALARA. COMPARISON STUDY: 06/08/2024 FINDINGS: Heart is normal in size. Trace pleural effusions with dependent bibasilar atelectasis. Scattered foci of pneumoperitoneum throughout the abdomen and pelvis are new from prior. Mildly enlarged spleen, 13.9 cm. Pancreas and adrenal glands are within normal limits. Cholecystectomy with likely postsurgical biliary ductal dilation. Patency of the hepatic and portal veins. Punctate nonobstructing calculus of the superior pole left kidney.r renal cysts measure up to approximately 4 cm on the left. No hydronephrosis. Prostatomegaly. Mild nonspecific urinary bladder wall thickening. No abdominal aortic aneurysm or lymphadenopathy. No bowel obstruction. Extensive colonic diverticulosis. Acute diverticulitis of the descending sigmoid junction, image 259 series 3 has progressed from prior. There is worsening pericolonic inflammation with trace free fluid and peritoneal thickening/enhancement. 3.3 cm air and fluid-filled collection of the pelvis on image 245 without discrete wall. Numerous adjacent smaller area fluid filled foci are also noted within the left lower quadrant. No drainable abscess. No acute fracture. Normal appendix. Right hip arthroplasty. No acute fracture. IMPRESSION: 1. Progressive acute diverticulitis of the descending sigmoid junction compared to the 06/08/2024 study with interval perforation. 2. There are several small air and fluid filled collections/developing abscesses within the left lower quadrant adjacent to the perforated colon. No drainable fluid collections are present on today's study. 3. No bowel obstruction. 4. Trace pleural effusions with mild bibasilar atelectasis. 5. Left nephrolithiasis. ACT 112: Negative or not required by law. The above report was generated using voice recognition software. It may contain grammatical, syntax or spelling errors. Electronically signed by: Dung Garcia M.D. 06/10/2024 2:25 PM PG Care Time/CCT Total # of Minutes Spent Total Time Spent with Patient: Total time spent is greater than 50% in coordination of care (as documented) at patient's floor/unit and/or counseling patient: Coding Level of Care Code 28749 INT INP/OBS CARE MIN Diagnoses Acute diverticulitis K57.92 Sigmoid diverticulitis K57.32
[2024-06-10] MEDS: SODIUM CHLORIDE 0.9% 1,000 ML IV SCH (20:50)
--- NOTE | 2024-06-10 20:58 | Surgery Consultation ---
Date of Consultation June 10, 2024 Assessment & Plan (1) Acute diverticulitis: Patient has been admitted on the hospitalist service. From surgery perspective we recommend the following: Patient was initially treated with conservative measures and his diet was made to clear liquids, but due to worsening pain repeat CT scan was performed showing concern for worsening diverticulitis with perforation. His diet has been back down to n.p.o. status which should continue He continues to receive antibiotics in form of Zosyn He should be hydrated IV fluids Serial labs should be followed I did discuss with the patient that we will continue to attempt to treat him in a conservative manner. At the present time he is nontoxic-appearing (afebrile, normotensive, no tachycardia, no leukocytosis) and therefore I feel further attempts at conservative management are warranted. I did discuss with the patient that if he would clinically worsen an emergency operation may be needed but again I do not feel that is needed at this time. I did discuss with the patient that it would be preferable to treat with conservative manner as any emergency surgery would likely necessitate a temporary colostomy. It would also be preferable for patient to have an up-to-date colonoscopy prior to entertaining any surgical intervention. I did discuss with the patient that his colonoscopy that is scheduled for July of this year will need to be pushed back until he is fully recovered from his acute episode of diverticulitis Additional recommendations were forthcoming based on his clinical course as unfolds History of Present Illness Reason for Consultation: Diverticulitis Attending Physician: Michael Perry MD History of Present Illness This is a 64-year-old male who was admitted to [facility] on 06/08/2024 secondary to diverticulitis. Approximately 1.5 weeks prior to this admission the patient says that he had some left flank pain that he felt was a muscle pull that went away. He then said approximate 24 hours prior to admission he had some severe left lower quadrant pain prompting his admission. He said he did not have any nausea or vomiting and denies any fevers, shakes, or chills. He says he was having some loose bowel movements without any hematochezia. He does note that he had a colonoscopy about 11 years going to the best of his knowledge there were no significant problems noted on this study. He said that he was scheduled to have his next colonoscopy in July of this year. He has had prior abdominal surgeries in the form of a laparoscopic cholecystectomy. Initially upon time of admission the patient had a CT scan which independently reviewed. The patient was noted to have sigmoid diverticulitis with no evidence of free air or abscess. The patient was treated in a conservative manner with n.p.o. status, antibiotics, and IV fluids for hydration. The patient was initially clinically improving so his diet was advanced to clear liquids but with this diet advancement he developed worsening abdominal pain. Due to his worsening abdominal pain repeat CT scan was performed today which was 06/10/2024. I independently reviewed the study this showed the patient had progression of his acute sigmoid diverticulitis and there was noted to be concern for interval perforation as there were small air and fluid collections with concern for developing abscess. No drainable fluid collections were noted. The patient's most recent labs include a CBC where his white blood cell count f rom today was 7.45 with a normal platelet count. His hemoglobin and hematocrit were 12.2 and 36.6. His chemistry profile today showed sodium, potassium, BUN, and creatinine were all normal. At the time of my interview he was resting comfortably in bed and he was in no distress. Allergies Allergy/AdvReac Type Severity Reaction Status Date / Time No Known Allergies Allergy Verified 12/06/19 05:40 Home Medications Medication Instructions Recorded Confirmed Type ascorbic acid (vitamin C) 500 mg 500 mg PO QAM 11/15/19 06/08/24 History tablet (Vitamin C) cyanocobalamin (vitamin B-12) 500 500 mcg PO QAM 11/15/19 06/08/24 History mcg tablet atorvastatin 40 mg tablet 40 mg PO DAILY 06/08/24 06/08/24 History Patient History Medical History Encounter for pre-operative examination Chronic back pain lower back Surgical History History of cholecystectomy History of colonoscopy Social History Smoking Status: Former smoker Tobacco Type: Cigarettes Second Hand Exposure: No; Do You Dip or Chew Tobacco: No; Tobacco Cessation Education Requested by Patient: No Hx Alcohol Use: Yes Alcohol type: beer Hx Substance Use: No Preferred Language: Andorran Communication Ability: Effective 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 Beliefs That Will Affect Care: None marital status: Current Living Situation: Spouse Other Information That Helps Us Care for You: No Feels Safe at Home: Yes Safety Concerns: Feels Safe At This Time Assistive Devices: None Review of Systems Review of Systems: All systems reviewed & are unremarkable except as noted in HPI & below Physical Exam Constitutional: WD/WN, vitals as above Eyes: no conjunctival abnormality ENMT: Ears: no hearing impairment and no external ear abnormality Mouth: no oropharynx abnormality Neck: trachea midline Respiratory: normal respiratory effort; no respiratory distress and no labored breathing Cardiovascular: Rate/Rhythm: regular rate and regular rhythm Gastrointestinal (Abdomen): Abdomen is soft with minimal distention. Patient only had pain with palpation in the left lower quadrant but there is no rebound tenderness or guarding. Musculoskeletal: No calf tenderness Skin: no rashes Neurologic: moves all extremities Psychiatric: A+Ox3, euthymic affect Results & Data Vital Signs (Past 12 Hours) Vital Signs Temp Pulse Resp BP Pulse Ox O2 Del Method 06/10/24 15:11 36.4 C L 67 16 123/80 99 Room Air PG Care Time/CCT Total # of Minutes Spent Total Time Spent with Patient: Total time spent is greater than 50% in coordination of care (as documented) at patient's floor/unit and/or counseling patient: Coding Level of Care Code 20178 IN/OBS CONSULT LVL 5,80M Diagnoses Acute diverticulitis K57.92
[2024-06-10] MEDS: ACETAMINOPHEN 1,000 MG/100 ML VIAL IV PRN (22:01)
[2024-06-11 07:25] LABS: Basophils # (auto) 0.02 K/uL (0.00-0.20); Basophils % (auto) 0.3 %; Eosinophils # (auto) 0.19 K/uL (0.00-0.50); Eosinophils % (auto) 2.9 %; Hematocrit (blood only) 35.6 % (42.0-52.0); Hemoglobin 12.3 g/dl (14.0-18.0); Immature Granulocytes # (auto) 0.02 K/uL (0.01-0.20); Immature Granulocytes % (auto) 0.3 %; Lymphocytes # (auto) 0.73 K/uL (1.20-3.40); Lymphocytes % (auto) 11.1 %; Mean Corpuscular Hemoglobin 30.4 pg (25.0-34.0); Mean Corpuscular Hgb Conc 34.6 g/dL (32.0-36.0); Mean Corpuscular Volume 88.1 fL (80.0-100.0); Mean Platelet Volume 9.7 fL (9.4-12.4); Monocytes # (auto) 0.45 K/uL (0.11-0.59); Monocytes % (auto) 6.8 %; Neutrophils # (auto) 5.19 K/uL (1.40-6.50); Neutrophils % (auto) 78.6 %; Platelet Count 167 K/uL (130-400); RDW Coefficient of Variation 12.4 % (11.5-14.5); RDW Standard Deviation 39.8 fL (36.4-46.3); Red Blood Count 4.04 M/uL (4.70-6.10)
[2024-06-11 07:48] LABS: Albumin Globulin Ratio 1.4 (0.9-2); Albumin Level 3.4 gm/dl (3.4-5.0); BUN Creatinine Ratio 9.9 (10-20); Bilirubin,Total 0.8 mg/dl (0.2-1.0); Calcium 8.5 mg/dl (8.6-10.3); Creatinine Clr Calc Pharmacy 84.2 ml/min; Globulin 2.4 gm/dl (2.5-4.0); Potassium 3.6 mmol/L (3.5-5.1); Total Protein 5.8 gm/dl (6.0-8.3)
--- NOTE | 2024-06-11 08:09 | Gastroenterology Progress Note ---
Date of Service June 11, 2024 Assessment & Plan (1) Acute diverticulitis: Plan: Clinically improving on medical therapy with IV antibiotics. Agree with surgical recommendations hoping to delay need for emergent surgery. Continue present regimen. Admission and Anticipated Discharge Date Admission Date: June 08, 2024 Subjective Less abdominal pain today no shortness of breath or chest pain Physical Exam Physical Exam: No acute distress Respiratory rate regular Cardiac rhythm regular Abdomen soft less tender, no rebound no guarding Results & Data Results & Data Vital Signs (Past 12 Hours) Vital Signs Temp Pulse Resp BP Pulse Ox O2 Del Method 06/11/24 07:21 36.7 C 66 18 118/81 96 Room Air 06/10/24 21:32 36.9 C 77 18 128/78 96 Room Air Laboratory Results Laboratory Results - last 48 hr 06/10/24 06/11/24 06:22 06:37 WBC 7.45 6.60 RBC 4.10 L 4.04 L Hgb 12.2 L 12.3 L Hct 36.6 L 35.6 L MCV 89.3 88.1 MCH 29.8 30.4 MCHC 33.3 34.6 RDW Std Deviation 41.7 39.8 RDW Coeff of Kimberli 12.7 12.4 Plt Count 161 167 MPV 9.5 9.7 Immature Gran % (Auto) 0.4 0.3 Neut % (Auto) 80.7 78.6 Lymph % (Auto) 11.3 11.1 [place] % (Auto) 6.2 6.8 Eos % (Auto) 1.3 2.9 Baso % (Auto) 0.1 0.3 Neut # (Auto) 6.01 5.19 Lymph # (Auto) 0.84 L 0.73 L [place] # (Auto) 0.46 0.45 Eos # (Auto) 0.10 0.19 Baso # (Auto) 0.01 0.02 Immature Gran # (Auto) 0.03 0.02 Sodium 138 140 Potassium 3.6 3.6 Chloride 106 107 Carbon Dioxide 28 25 Anion Gap 4 8 BUN 12 9 Creatinine 1.12 0.91 Est Cr Clr Drug Dosing 68.4 84.2 eGFR 74.28 95.29 BUN/Creatinine Ratio 10.7 9.9 L Glucose 96 84 Calcium 8.5 L 8.5 L Total Bilirubin 1.0 0.8 AST 16 13 ALT 33 26 Alkaline Phosphatase 51 50 Total Protein 5.6 L 5.8 L Albumin 3.5 3.4 Globulin 2.1 L 2.4 L Albumin/Globulin Ratio 1.7 1.4 PG Care Time/CCT Total # of Minutes Spent Total Time Spent with Patient: Total time spent is greater than 50% in coordination of care (as documented) at patient's floor/unit and/or counseling patient: Coding Level of Care Code 40806 SUB INP/OBS CARE 235MIN Diagnoses Acute diverticulitis K57.92
--- NOTE | 2024-06-11 11:24 | Surgery Progress Note ---
Date of Service June 11, 2024 Assessment & Plan (1) Acute diverticulitis: Plan: He should continue to improve with just conservative management. Afebrile no leukocytosis and improving clinical exam. I will reinitiate clear liquids. Will continue to follow along Admission and Anticipated Discharge Date Admission Date: June 08, 2024 Subjective Patient seen. Feeling much better today. Minimal discomfort Physical Exam Constitutional: WD/WN, vitals as above no acute distress and not ill appearing Eyes: PERRL, conjunctivae normal, anicteric sclerae EOM intact bilaterally ENMT: external ear and nose normal, oropharynx normal Ears: no hearing impairment Neck: trachea midline, no thyromegaly Respiratory: normal respiratory effort; no respiratory distress and does not use accessory muscles Cardiovascular: Rate/Rhythm: regular rate and regular rhythm Gastrointestinal (Abdomen): Soft. Very mild suprapubic and left lower quadrant tenderness. No guarding. Skin: no rashes, warm and dry Psychiatric: Orientation: alert, oriented x 3 and cooperative Results & Data Vital Signs (Past 12 Hours) Vital Signs Temp Pulse Resp BP Pulse Ox O2 Del Method 06/11/24 07:21 36.7 C 66 18 118/81 96 Room Air PG Care Time/CCT Total # of Minutes Spent Total Time Spent with Patient: Total time spent is greater than 50% in coordination of care (as documented) at patient's floor/unit and/or counseling patient: Coding Level of Care Code 46733 SUB INP/OBS CARE 04/01MIN Diagnoses Acute diverticulitis K57.92
--- NOTE | 2024-06-11 14:47 | Hospitalist Progress Note ---
Date of Service June 11, 2024 Assessment & Plan (1) Acute diverticulitis: Plan: (1) Sepsis: Plan: Sepsis Secondary to acute sigmoid diverticulitis First episode 06/09 clinically improving afebrile blood culture: pending continue clear liquids, if tolerating full liquids x 2 days IV Zosyn IV fluids PRN pain meds will need Colonoscopy 06/10 Still having moderate left quadrant tenderness CT abdomen pelvis: 1. Progressive acute diverticulitis of the descending sigmoid junction compared to the 06/08/2024 study with interval perforation. 2. There are several small air and fluid filled collections/developing abscesses within the left lower quadrant adjacent to the perforated colon. No drainable fluid collections are present on today's study. 3. No bowel obstruction. 4. Trace pleural effusions with mild bibasilar atelectasis. 5. Left nephrolithiasis. Discussed with general surgery-Dr. Granger Recommend to keep patient strict n.p.o., continue IV Zosyn He will be reviewing the CAT scan and evaluating the patient soon Hold all p.o. medications Will order IV Ofirmev, morphine for pain Continue IV fluids Continue IV Zosyn Monitor closely 06/11 Patient remains stable overall Afebrile No leukocytosis Blood cultures: Negative so far Evaluated by GI and general surgery service Appreciate the recommendations Continue conservative management at this time including IV Zosyn, IV fluids Diet advanced to clear liquids today per Dr. Granger Continue to monitor closely Coronary artery calcification seen on CT abdomen and pelvis Will need aspirin and statin hyperlipidemia, on statin Rx prediabetes, hemoglobin A1c of 5.6 last month past tobacco abuse DVT prophylaxis with Lovenox subcu Full code Disposition lives at home Admission and Anticipated Discharge Date Admission Date: June 08, 2024 Subjective Follow-up for acute diverticulitis with perforation, etc. Seen resting in bed, sitting up, comfortable Patient's Amanda at the bedside visiting States he had a good night sleep overall Having some waves of left lower quadrant pain this morning No nausea No chills No other new symptom Review of Systems Review of Systems: all noted and negative except for above Physical Exam Physical Exam: General- oriented x 3, not in distress, speaks in sentences with no effort or a ccessory muscle use Eyes- anicteric Neck- no JVD Lungs- clear breath sounds bilaterally, no crackles, no wheezing Heart- normal rate, regular rhythm; no murmurs Abdomen- normal bowel sounds, nondistended, soft, moderate tenderness left lower quadrant Extremities- no pretibial edema, no calf tenderness Neuro- alert, oriented x 3; no gross focal neurologic deficits Skin- warm & dry Results & Data Results & Data Vital Signs (Past 12 Hours) Vital Signs Temp Pulse Resp BP Pulse Ox O2 Del Method 06/11/24 07:21 36.7 C 66 18 118/81 96 Room Air all noted and reviewed including below
[2024-06-12 07:11] LABS: Basophils # (auto) 0.02 K/uL (0.00-0.20); Basophils % (auto) 0.4 %; Eosinophils # (auto) 0.26 K/uL (0.00-0.50); Eosinophils % (auto) 4.7 %; Hematocrit (blood only) 38.8 % (42.0-52.0); Hemoglobin 13.4 g/dl (14.0-18.0); Immature Granulocytes # (auto) 0.02 K/uL (0.01-0.20); Immature Granulocytes % (auto) 0.4 %; Lymphocytes # (auto) 0.81 K/uL (1.20-3.40); Lymphocytes % (auto) 14.8 %; Mean Corpuscular Hgb Conc 34.5 g/dL (32.0-36.0); Mean Corpuscular Volume 86.8 fL (80.0-100.0); Mean Platelet Volume 9.5 fL (9.4-12.4); Monocytes # (auto) 0.41 K/uL (0.11-0.59); Monocytes % (auto) 7.5 %; Neutrophils # (auto) 3.97 K/uL (1.40-6.50); Neutrophils % (auto) 72.2 %; Platelet Count 210 K/uL (130-400); RDW Coefficient of Variation 12.1 % (11.5-14.5); RDW Standard Deviation 39.1 fL (36.4-46.3); Red Blood Count 4.47 M/uL (4.70-6.10); White Blood Count 5.49 K/ul (4.8-10.8)
[2024-06-12 07:29] LABS: Albumin Globulin Ratio 1.5 (0.9-2); Albumin Level 3.9 gm/dl (3.4-5.0); BUN Creatinine Ratio 8.3 (10-20); Bilirubin,Total 0.6 mg/dl (0.2-1.0); Calcium 8.9 mg/dl (8.6-10.3); Creatinine Clr Calc Pharmacy 79.8 ml/min; Globulin 2.6 gm/dl (2.5-4.0); Potassium 3.8 mmol/L (3.5-5.1); Total Protein 6.5 gm/dl (6.0-8.3)
[2024-06-12 08:03] VITALS: RESP 16
--- NOTE | 2024-06-12 09:44 | Gastroenterology Progress Note ---
Date of Service June 12, 2024 Assessment & Plan (1) Acute diverticulitis: Plan: Patient still feels some pain that has been ongoing and feels about the same as previously. - continue with antibiotics. - surgery also following. - will discuss case further with Dr. Membreno. Further recommendations to follow. Admission and Anticipated Discharge Date Admission Date: June 08, 2024 Supervising Physician Co-Signing Physician Notes I saw and examined this patient with our nurse practitioner and agree with her assessment and plan. Seen this afternoon feels better less abdominal pain no rebound or peritoneal signs. Appears to be making progress with medical therapy. Continue present regimen. Hopefully we could delay any surgical intervention. Subjective Patient tells me that he has still been having discomfort in his LLQ. he tells me that this feels the same as it did yesterday. he has been tolerating clear liquids, but does admit to some pain after he drinks. he has been walking around without issues. he tells me that he passed small amounts of stool 4 times this morning. Review of Systems Review of Systems: All systems reviewed & are unremarkable except as noted in HPI & below Physical Exam Constitutional: WD/WN, vitals as above Respiratory: normal respiratory effort, lungs clear to auscultation Cardiovascular: Rate/Rhythm: regular rate and regular rhythm Gastrointestinal (Abdomen): LLQ tenderness to palpation, no guarding, soft, normal bowel sounds. Psychiatric: Orientation: alert and oriented x 3 Affect: euthymic affect Results & Data Results & Data Vital Signs (Past 12 Hours) Vital Signs Temp Pulse Resp BP Pulse Ox O2 Del Method 06/12/24 07:59 98.1 F 66 16 126/80 94 Room Air Coding Level of Care Code 47705 SUB INP/OBS CARE 2/35MIN Diagnoses Acute diverticulitis K57.92
--- NOTE | 2024-06-12 10:23 | Surgery Progress Note ---
Date of Service June 12, 2024 Assessment & Plan (1) Acute diverticulitis: Plan: -Patient continues to do well at this time, continue conservative management. -Afebrile and WBC WNL -Patient still having some discomfort/cramping pains in the LLQ mostly with passing gas/bowel movements but states the pain has not gotten any worse. Denies nausea or vomiting and has been able to tolerate clears without any issues thus far. Discussed with patient that if he continues to tolerate clears this afternoon can consider advancing to fulls later today. -Surgery will continue to follow Admission and Anticipated Discharge Date Admission Date: June 08, 2024 Subjective Patient seen and evaluated this morning, he was up ambulating the halls without any issue States pain is controlled however at times he still is having some discomfort/cramping in the LLQ. States it comes and goes, mostly noticeable before a bowel movement or passing gas. Has had 4 small BMs today Tolerating clears without any issues of nausea or vomiting Afebrile and WBC 5.4 Physical Exam Constitutional: WD/WN, vitals as above Respiratory: normal respiratory effort, lungs clear to auscultation Cardiovascular: RRR, no murmur, no edema Gastrointestinal (Abdomen): Abdomen soft, nondistended, +TTP in the LLQ and lower pelvic region without rebound or guarding Skin: no rashes, warm and dry Results & Data Vital Signs (Past 12 Hours) Vital Signs Temp Pulse Resp BP Pulse Ox O2 Del Method 06/12/24 07:59 36.7 C 66 16 126/80 94 Room Air PG Care Time/CCT Total # of Minutes Spent Total Time Spent with Patient: Total time spent is greater than 50% in coordination of care (as documented) at patient's floor/unit and/or counseling patient: Coding [place] [address] SUB INP/OBS CARE 04/01MIN Patient Type Established History Problem Focused Exam Problem Focused Medical Decision Making Straight Forward Diagnoses Acute diverticulitis K57.92
[2024-06-12] MEDS: ADVANCED PROBIOTIC 625 MG CAPSULE PO SCH (15:51)
[2024-06-12] MEDS: ASCORBIC ACID 500 MG TAB PO SCH (15:51)
[2024-06-12] MEDS: CYANOCOBALAMIN (B-12) 500 MCG TABLET PO SCH (15:51)
--- NOTE | 2024-06-12 17:57 | Hospitalist Progress Note ---
Date of Service June 12, 2024 Assessment & Plan (1) Acute diverticulitis: Plan: (1) Sepsis: Plan: Sepsis Secondary to acute sigmoid diverticulitis First episode 06/09 clinically improving afebrile blood culture: pending continue clear liquids, if tolerating full liquids x 2 days IV Zosyn IV fluids PRN pain meds will need Colonoscopy 06/10 Still having moderate left quadrant tenderness CT abdomen pelvis: 1. Progressive acute diverticulitis of the descending sigmoid junction compared to the 06/08/2024 study with interval perforation. 2. There are several small air and fluid filled collections/developing abscesses within the left lower quadrant adjacent to the perforated colon. No drainable fluid collections are present on today's study. 3. No bowel obstruction. 4. Trace pleural effusions with mild bibasilar atelectasis. 5. Left nephrolithiasis. Discussed with general surgery-Dr. Granger Recommend to keep patient strict n.p.o., continue IV Zosyn He will be reviewing the CAT scan and evaluating the patient soon Hold all p.o. medications Will order IV Ofirmev, morphine for pain Continue IV fluids Continue IV Zosyn Monitor closely 06/11 Patient remains stable overall Afebrile No leukocytosis Blood cultures: Negative so far Evaluated by GI and general surgery service Appreciate the recommendations Continue conservative management at this time including IV Zosyn, IV fluids Diet advanced to clear liquids today per Dr. Granger Continue to monitor closely 06/12 pain seems to be have improved compared to yesterday Remains afebrile, without leukocytosis Blood cultures negative Continue IV Zosyn, IV fluids Diet advanced to full liquids Discussed with GI and general surgery, no indication to perform repeat CT abdomen pelvis at this time Will continue to monitor closely Coronary artery calcification seen on CT abdomen and pelvis Will need aspirin and statin hyperlipidemia, on statin Rx prediabetes, hemoglobin A1c of 5.6 last month past tobacco abuse DVT prophylaxis with Lovenox subcu Full code Disposition lives at home Admission and Anticipated Discharge Date Admission Date: June 08, 2024 Subjective follow-up for acute diverticulitis with perforation, etc. Seen resting in bed, in good spirits States left lower quadrant pain seems to be improving Ambulated in the hallways multiple times with no problems No nausea or vomiting, fevers or chills Tolerating clear liquids No other new symptoms Review of Systems Review of Systems: all noted and negative except for above Physical Exam Physical Exam: General- oriented x 3, not in distress, speaks in sentences with no effort or accessory muscle use Eyes- anicteric Neck- no JVD Lungs- clear breath sounds bilaterally, no rales/wheezes Heart- normal rate, regular rhythm; no murmurs Abdomen- normal bowel sounds, nondistended, soft, mild to moderate tenderness in the left lower quadrant Extremities- no pretibial edema, no calf tenderness Neuro- alert, oriented x 3; no gross focal neurologic deficits Skin- warm & dry Results & Data Results & Data Vital Signs (Past 12 Hours) Vital Signs Temp Pulse Resp BP Pulse Ox O2 Del Method 06/12/24 11:35 36.7 C 63 16 134/82 94 Room Air 06/12/24 07:59 36.7 C 66 16 126/80 94 Room Air all noted and reviewed including below
[2024-06-13 07:49] LABS: Basophils # (auto) 0.03 K/uL (0.00-0.20); Basophils % (auto) 0.6 %; Eosinophils # (auto) 0.37 K/uL (0.00-0.50); Eosinophils % (auto) 7.2 %; Hematocrit (blood only) 38.5 % (42.0-52.0); Hemoglobin 13.3 g/dl (14.0-18.0); Immature Granulocytes # (auto) 0.03 K/uL (0.01-0.20); Immature Granulocytes % (auto) 0.6 %; Lymphocytes # (auto) 0.94 K/uL (1.20-3.40); Lymphocytes % (auto) 18.4 %; Mean Corpuscular Hemoglobin 29.4 pg (25.0-34.0); Mean Corpuscular Hgb Conc 34.5 g/dL (32.0-36.0); Mean Corpuscular Volume 85.2 fL (80.0-100.0); Mean Platelet Volume 9.6 fL (9.4-12.4); Monocytes # (auto) 0.46 K/uL (0.11-0.59); Neutrophils # (auto) 3.29 K/uL (1.40-6.50); Neutrophils % (auto) 64.2 %; Platelet Count 215 K/uL (130-400); RDW Coefficient of Variation 12.3 % (11.5-14.5); RDW Standard Deviation 38.3 fL (36.4-46.3); Red Blood Count 4.52 M/uL (4.70-6.10); White Blood Count 5.12 K/ul (4.8-10.8)
--- NOTE | 2024-06-13 08:58 | Surgery Progress Note ---
Date of Service June 13, 2024 Assessment & Plan (1) Acute diverticulitis: Plan: -Patient continues to do well at this time, continue conservative management. -Afebrile and WBC WNL -Patient still having some discomfort in the LLQ but states the pain has started to improve. Denies nausea or vomiting and has been able to tolerate fulls without any issues thus far. Will plan to start low fiber diet today and switch IV abx to oral. If patient is able to tolerate over the next 24 hours anticipate home tomorrow. -Surgery will continue to follow as above. clinically doing much better. pain almost resolved. will advance diet. rec changing to oral antibiotics. possible d/c tomorrow if he continues to do well. Admission and Anticipated Discharge Date Admission Date: June 08, 2024 Subjective Patient doing well this morning states his pain overall has started to improve. Tolerating full liquids without issue of abdominal pain, nausea or vomiting Afebrile and WBC 5.12 . Still on IV abx Physical Exam Constitutional: WD/WN, vitals as above Respiratory: normal respiratory effort, lungs clear to auscultation Cardiovascular: RRR, no murmur, no edema Gastrointestinal (Abdomen): Abdomen soft, nondistended, +mild TTP in the LLQ without rebound or guarding Skin: no rashes, warm and dry Results & Data Vital Signs (Past 12 Hours) Vital Signs Temp Pulse Resp BP Pulse Ox O2 Del Method 06/13/24 07:31 36.8 C 75 16 137/83 95 Room Air PG Care Time/CCT Total # of Minutes Spent Total Time Spent with Patient: Total time spent is greater than 50% in coordination of care (as documented) at patient's floor/unit and/or counseling patient: Coding [place] [address] SUB INP/OBS CARE 04/01MIN Patient Type Established Medical Decision Making Straight Forward Diagnoses Acute diverticulitis K57.92
[2024-06-13 08:59] LABS: Albumin Globulin Ratio 1.4 (0.9-2); Albumin Level 3.6 gm/dl (3.4-5.0); BUN Creatinine Ratio 7.1 (10-20); Bilirubin,Total 0.4 mg/dl (0.2-1.0); Calcium 9.2 mg/dl (8.6-10.3); Creatinine Clr Calc Pharmacy 78.2 ml/min; Globulin 2.6 gm/dl (2.5-4.0); Potassium 3.5 mmol/L (3.5-5.1); Total Protein 6.2 gm/dl (6.0-8.3)
--- NOTE | 2024-06-13 11:05 | Gastroenterology Progress Note ---
Date of Service June 13, 2024 Assessment & Plan (1) Acute diverticulitis: Plan: Continue with antibiotics. Patient feels significantly better. He is hoping for discharge to home tomorrow. Admission and Anticipated Discharge Date Admission Date: June 08, 2024 Supervising Physician Co-Signing Physician Notes I saw and examined this patient with our nurse practitioner and agree with her assessment and plan. Continues to improve with less abdominal pain tolerating diet switch to low fiber. Switched to oral antibiotics. Possible discharge within the next 24 hours. Subjective patient feels much better today. so far, he tells me that he is tolerating a low fiber diet. abdominal pain has almost completely resolved. Review of Systems Review of Systems: All systems reviewed & are unremarkable except as noted in HPI & below Physical Exam Constitutional: WD/WN, vitals as above Respiratory: normal respiratory effort, lungs clear to auscultation Cardiovascular: Rate/Rhythm: regular rate and regular rhythm Gastrointestinal (Abdomen): mild LLQ tenderness, no guarding, soft. normal bowel sounds. Psychiatric: Orientation: alert and oriented x 3 Affect: euthymic affect Results & Data Results & Data Vital Signs (Past 12 Hours) Vital Signs Temp Pulse Resp BP Pulse Ox O2 Del Method 06/13/24 07:31 98.2 F 75 16 137/83 95 Room Air Coding Level of Care Code 34839 SUB INP/OBS CARE 04/01MIN Diagnoses Acute diverticulitis K57.92
[2024-06-13] MEDS: AMOXICILLIN/CLAVULANATE 875 MG TAB PO SCH (16:35)
--- NOTE | 2024-06-13 19:23 | Hospitalist Progress Note ---
Date of Service June 13, 2024 Assessment & Plan (1) Acute diverticulitis: Plan: (1) Sepsis: Plan: Sepsis Secondary to acute sigmoid diverticulitis 4/5 Still having moderate left quadrant tenderness CT abdomen pelvis: 1. Progressive acute diverticulitis of the descending sigmoid junction compared to the 06/08/2024 study with interval perforation. 2. There are several small air and fluid filled collections/developing abscesses within the left lower quadrant adjacent to the perforated colon. No drainable fluid collections are present on today's study. 3. No bowel obstruction. 4. Trace pleural effusions with mild bibasilar atelectasis. 5. Left nephrolithiasis. Evaluated by GI and general surgery service Continue conservative management including IV Zosyn, IV fluids 06/13 Pain gradually improving daily Remains afebrile, without leukocytosis Blood cultures negative transitioned from IV Zosyn to Augmentin Diet advanced to low fiber possible d/c tomorrow ID consult pending Coronary artery calcification seen on CT abdomen and pelvis denies chest pain Will need aspirin once diverticulitis resolved already on statin further work up as outpatient hyperlipidemia, on statin Rx prediabetes, hemoglobin A1c of 5.6 last month past tobacco abuse DVT prophylaxis with Lovenox subcu Full code Disposition possible d/c tomorrow Admission and Anticipated Discharge Date Admission Date: June 08, 2024 Subjective follow-up for Acute diverticulitis with perforation, etc. seen resting in bed, comfortable, in good spirits States he continues to feel improved overall Still having some left lower quadrant pain but improving Less tender Positive BMs, tolerating full liquid diet No other new symptoms Review of Systems Review of Systems: all noted and negative except for above Physical Exam Physical Exam: General- oriented x 3, not in distress, speaks in sentences with no effort or accessory muscle use Eyes- anicteric Neck- no JVD Lungs- clear breath sounds bilaterally, no rales/wheezes Heart- normal rate, regular rhythm; no murmurs Abdomen- normal bowel sounds, nondistended, soft, mild LLQ tenderness Extremities- no pretibial edema, no calf tenderness Neuro- alert, oriented x 3; no gross focal neurologic deficits Skin- warm & dry Results & Data Results & Data Vital Signs (Past 12 Hours) Vital Signs Temp Pulse Resp BP Pulse Ox O2 Del Method 06/13/24 16:01 36.6 C 71 16 148/83 H 97 Room Air 06/13/24 07:31 36.8 C 75 16 137/83 95 Room Air all noted and reviewed including below
[2024-06-13 21:56] VITALS: O2SAT 95
[2024-06-13] MEDS: ACETAMINOPHEN 325 MG TAB PO PRN (22:48)
[2024-06-14 06:51] LABS: Basophils # (auto) 0.04 K/uL (0.00-0.20); Basophils % (auto) 0.8 %; Eosinophils # (auto) 0.26 K/uL (0.00-0.50); Hematocrit (blood only) 39.6 % (42.0-52.0); Hemoglobin 13.9 g/dl (14.0-18.0); Immature Granulocytes # (auto) 0.02 K/uL (0.01-0.20); Immature Granulocytes % (auto) 0.4 %; Lymphocytes # (auto) 0.97 K/uL (1.20-3.40); Lymphocytes % (auto) 18.6 %; Mean Corpuscular Hgb Conc 35.1 g/dL (32.0-36.0); Mean Corpuscular Volume 85.3 fL (80.0-100.0); Mean Platelet Volume 9.5 fL (9.4-12.4); Monocytes # (auto) 0.49 K/uL (0.11-0.59); Monocytes % (auto) 9.4 %; Neutrophils # (auto) 3.44 K/uL (1.40-6.50); Neutrophils % (auto) 65.8 %; Platelet Count 240 K/uL (130-400); RDW Coefficient of Variation 12.3 % (11.5-14.5); RDW Standard Deviation 38.1 fL (36.4-46.3); Red Blood Count 4.64 M/uL (4.70-6.10); White Blood Count 5.22 K/ul (4.8-10.8)
[2024-06-14 07:22] VITALS: TEMP 98.1
--- NOTE | 2024-06-14 08:15 | Surgery Progress Note ---
Date of Service June 14, 2024 Assessment & Plan (1) Acute diverticulitis: Plan: Patient here with diverticulitis, improved with conservative measures WBC 5. Vitals stable, afebrile He is tolerating a low fiber diet as well as po abx Pt feels well. abdomen is soft, mild discomfort to palpation which is improving each day He denies n/v. He is having + bowel function We are okay w/ dispo to home today. Home on po abx to complete 10-14 days total Can f/u with dr. love in the office within 2 weeks. at that time will consider timing of repeat CT scan Admission and Anticipated Discharge Date Admission Date: June 08, 2024 Subjective Patient reports feeling well today. Tolerating low fiber diet. Pain has improved, only slightly tender to palpation at this point. Denies nausea/vomiting. + bowel function. Physical Exam Physical Exam: awake/alert, no distress Gastrointestinal (Abdomen): Inspection/Auscultation: abdomen not distended Percussion/Palpation: + abdomen tender (slightly tender in the left lower abdomen, improved) and abdomen soft Results & Data Vital Signs (Past 12 Hours) Vital Signs Temp Pulse Resp BP Pulse Ox O2 Del Method 06/14/24 07:22 98.1 F 89 16 121/85 95 Room Air PG Care Time/CCT Total # of Minutes Spent Total Time Spent with Patient: Total time spent is greater than 50% in coordination of care (as documented) at patient's floor/unit and/or counseling patient: Coding Level of Care Code 58619 SUB INP/OBS CARE 04/01MIN Diagnoses Acute diverticulitis K57.92
[2024-06-14 11:42] VITALS: BP 148/83; PULSE 63
--- NOTE | 2024-06-14 11:47 | Discharge Summary ---
Date of Service June 14, 2024 Admission HPI Per Admitting Provider History obtained from patient, family, and records. Medical history significant for hyperlipidemia, prediabetes, diverticulosis, past tobacco abuse. Last confinement 2019 under Orthopedics service for elective right hip surgery. Unremarkable postop course. Over the last week, patient noted achy low back pain which later moved to his lower abdomen and groin. Patient initially thought pain was from back spasm. Some chills at home. Denies constipation, diarrhea, or hematochezia symptoms. No chest pain or SOB. Zosyn administered at the ER for diverticulitis. No prior episodes. 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 Exam Per Admitting Provider GENERAL: Slightly uncomfortable, pleasant, covered in blankets, no respiratory distress SKIN: Normal color, warm HEENT: Alopecia, Marlow palpebral conjunctivae, no ptosis, dry buccal mucosa NECK : Supple, no tenderness CHEST : CTA, no tenderness HEART : RRR, no obvious murmurs ABDOMEN: Some distention, hypogastric tenderness EXTREMITIES : No LE swelling/tenderness, palpable pulses, no other conspicuous deformities noted NEUROLOGIC : Coherent, no facial asymmetry, no other gross focality Principal Diagnosis Acute diverticulitis, complicated Discharge Exam General- oriented x 3, not in distress, speaks in sentences with no effort or accessory muscle use Eyes- anicteric Neck- no JVD Lungs- clear breath sounds bilaterally, no rales/wheezes Heart- normal rate, regular rhythm; no murmurs Abdomen- normal bowel sounds, nondistended, soft, mild LLQ tenderness on palpation Extremities- no pretibial edema, no calf tenderness Neuro- alert, oriented x 3; no gross focal neurologic deficits Skin- warm & dry Discharge Data Allergies Allergy/AdvReac Type Severity Reaction Status Date / Time No Known Allergies Allergy Verified 12/06/19 05:40 Consultations 06/08/24 19:51 ED Decision to Admit Stat 06/10/24 12:55 Consult Gastroenterology Routine 06/10/24 16:47 Consult General Surgery Stat 06/13/24 07:35 Consult Infectious Diseases Routine Ordered Studies 06/08/24 16:47 CT abd pelvis IV con only Stat FINDINGS: Visualized lung bases appear unremarkable. In the gallbladder is surgically absent. Mild delay ductal prominence likely relates to patient's post cholecystectomy state. The spleen, pancreas and adrenal glands appear unremarkable. No hydronephrosis. Cysts noted No evidence of bowel obstruction/appendicitis. Sigmoid colonic wall thickening with adjacent inflammatory fat stranding and diverticula present. No free air. No drainable fluid collection. The urinary bladder appears unremarkable. Right hip hardware with streak artifact in the pelvis. No acute osseous abnormality evident. IMPRESSION: Sigmoid diverticulitis. No free air or abscess. 06/10/24 12:55 CT Abd and Pelvis [CT abd pelvis IV con only] Urgent FINDINGS: Heart is normal in size. Trace pleural effusions with dependent bibas ilar atelectasis. Scattered foci of pneumoperitoneum throughout the abdomen and pelvis are new from prior. Mildly enlarged spleen, 13.9 cm. Pancreas and adrenal glands are within normal limits. Cholecystectomy with likely postsurgical biliary ductal dilation. Patency of the hepatic and portal veins. Punctate nonobstructing calculus of the superior pole left kidney.r renal cysts measure up to approximately 4 cm on the left. No hydronephrosis. Prostatomegaly. Mild nonspecific urinary bladder wall thickening. No abdominal aortic aneurysm or lymphadenopathy. No bowel obstruction. Extensive colonic diverticulosis. Acute diverticulitis of the descending sigmoid junction, image 259 series 3 has progressed from prior. There is worsening pericolonic inflammation with trace free fluid and peritoneal thickening/enhancement. 3.3 cm air and fluid-filled collection of the pelvis on image 245 without discrete wall. Numerous adjacent smaller area fluid filled foci are also noted within the left lower quadrant. No drainable abscess. No acute fracture. Normal appendix. Right hip arthroplasty. No acute fracture. IMPRESSION: 1. Progressive acute diverticulitis of the descending sigmoid junction compared to the 06/08/2024 study with interval perforation. 2. There are several small air and fluid filled collections/developing abscesses within the left lower quadrant adjacent to the perforated colon. No drainable fluid collections are present on today's study. 3. No bowel obstruction. 4. Trace pleural effusions with mild bibasilar atelectasis. 5. Left nephrolithiasis. Hospital Course (1) Acute diverticulitis: (1) Sepsis: Plan: Sepsis Secondary to acute sigmoid diverticulitis 06/10 Still having moderate left quadrant tenderness CT abdomen pelvis: 1. Progressive acute diverticulitis of the descending sigmoid junction compared to the 06/08/2024 study with interval perforation. 2. There are several small air and fluid filled collections/developing abscesses within the left lower quadrant adjacent to the perforated colon. No drainable fluid collections are present on today's study. 3. No bowel obstruction. 4. Trace pleural effusions with mild bibasilar atelectasis. 5. Left nephrolithiasis. Evaluated by GI and general surgery service Continue conservative management including IV Zosyn, IV fluids 06/13 Pain gradually improving daily Remains afebrile, without leukocytosis Blood cultures negative transitioned from IV Zosyn to Augmentin Diet advanced to low fiber 06/14 Pt feels well, tolerating diet, having BMs ID consulted and discussed with - recommend to discharge on Levaquin 750 daily and metronidazole 500 TID for total of 3 weeks. Coronary artery calcification seen on CT abdomen and pelvis denies chest pain Will need aspirin once diverticulitis resolved already on statin further work up as outpatient hyperlipidemia, on statin Rx prediabetes, hemoglobin A1c of 5.6 last month past tobacco abuse Total Time Total Time Spent Total Time Spent (In Minutes): 40 Discharge Plan Discharge Items Patient Disposition: Home - Self-Care Reason For Visit: DIVERTICULITIS Discharge Diagnosis: Acute diverticulitis, complicated Activity: Per Instructions section Non-emergency contact: Primary Care Provider and Surgeon Call non-emergency contact if: your pain is worsening, you have a fever and your temperature is above 101.5 Follow-up/Referrals: Kwasi Granger DO [Surgeon] - (f/u in 2 weeks for acute diverticulitis. ) Emilia Ahumada DO [Primary Care Provider] - (Date & Time 06/20/2024 9:00 AM Provider: Emilia Lezama MD Family Medicine [facility] ) Diet: Low Fiber Addtl Attending Provider Instructions: Continue on a low fiber diet at least for 4-6 weeks or until suggested by Dr. Granger Please call Dr. Granger's office to schedule an outpatient appointment to be seen by him within 2 weeks. At that appointment he will discuss if a repeat CT scan is necessary and timing of when Complete the full course of antibiotic prescribed to you Pending Studies at Discharge: No Stand-Alone Forms: My [employer], Smoking Cessation Medications and DC Order Prescriptions: New levofloxacin 750 mg tablet 750 mg PO DAILY 15 Days Qty: 15 0RF metronidazole 500 mg tablet 500 mg PO TID 15 Days Qty: 45 0RF Continued cyanocobalamin (vitamin B-12) 500 mcg Tablet 500 mcg PO QAM ascorbic acid (vitamin C) [Vitamin C] 500 mg Tablet 500 mg PO QAM atorvastatin 40 mg tablet 40 mg PO DAILY Discharge Orders: Discharge Order (Routine); Ordered 06/14/24 Ordered By: Antony Cabrera/Other Patient Handouts: Low-Fiber Diet Admission Data Admit Date/Time: 06/08/24 20:58 Attending Provider: Antony Rudolph Admit Provider: Sumeet Phelps Primary Care Provider: Emilia Ahumada Other Providers: Sumeet Phelps; Maria De Jesus Person; Vinayak Leon; Ginna Mahmood; Candie Mac; Maria De Jesus Ray; Shweta Pineda; Calos Polanco; Linda Kee; Marga Ngo; Rony Brown S; Yissel Conner; Zita Maddox; Gabriela Rodriguez; Lola Izaguirre; Natalie Barrett; Jaskaran Mccray; Abhay Dooley; Nataliia Mayer; William Jackson Jr; Jacob Thomas; Neftaly Winkler; Piyush Deal; Matt Metz; Yesy Blanco; Selwyn Membreno I; Therese Cortes; Abdirahman Betts; Solomon Doan Matthew D.; Ricki Fong; Anabelle Tijerina; Alpesh Ramon I.; Pb Osorio II; Lizette Paul; oDn Quick; Kareem Peña; Julieta Rowan; Leti Putnam; Sudha Galindo; Michael Perry
== END 2024-06-14 11:55 | disposition home or self-care (01) | DRG 872 ==
LOC: ED 16:28 → 3W 20:58 → SUATTDRO 20:58 → 3W 21:52
DX: K57.20 Diverticulitis of large intestine with perforation and abscess without bleeding; I25.10 Atherosclerotic heart disease of native coronary artery without angina pectoris; R73.03 Prediabetes; Z87.891 Personal history of nicotine dependence; A41.9 Sepsis, unspecified organism; E78.5 Hyperlipidemia, unspecified